=== PATIENT | male | born 1945 ===

== ENCOUNTER 2021-01-06 21:27 | Inpatient (IN) ==
[2021-01-06] MEDS ORDERED: SODIUM CHLORIDE 0.9% 500 ML IV SCH (22:00)
--- NOTE | 2021-01-06 22:11 | Emergency Department Note ---
Impression & Plan Atrial fibrillation with rapid ventricular response, Palpitation, SOB (shortness of breath), Right upper lobe pneumonia ED Provider Note NAME: LALITA JAIMES AGE: 75 SEX: M : 1945 ARRIVES VIA: Ambulance INFORMANT: Patient, ED PROVIDER(S): Jose Guzmán DO CHIEF COMPLAINT: Palpitations HPI: The patient is a 75-year-old male who presented to the emergency department from [facility] for an evaluation of palpitations. The patient does have a history of pacemaker as well as atrial fibrillation because of sick sinus syndr ome. He was discharged from [facility] and sent to [facility]. The patient is originally from the [facility]. [facility] [place] for sepsis and hypoxic respiratory failure. The patient does have a history of atrial fibrillation. Reportedly he does take medications for atrial fibrillation including anticoagulation. The patient admittedly states he does not know why he is here. En route he received normal saline bolus of 300 mL and Cardizem 15 mg. He was found to be in rapid atrial fibrillation. The patient denies any fever. He does complain of cough. He has a history of Pseudomonas in his sputum. He was receiving cefepime as well as ciprofloxacin. The patient denies having any fever. He denies have any lower extremity pain. He denies having any chest pain. The patient states that he has been compliant with his outpatient medication regimen. He states that he was sent to the emergency department at the request of his daughter. ROS: See above HPI for pertinent positives & negatives. A total of 10 systems reviewed and were otherwise negative. PAST MEDICAL HISTORY: See Below PAST SURGICAL HISTORY: See Below FAMILY HISTORY: See Below SOCIAL HISTORY: See Below HOME MEDICATIONS: See Below ALLERGIES: See Below VITALS: See Below PHYSICAL EXAMINATION: GENERAL: The patient is awake and alert. The patient is somewhat cachectic appearing. EYES: The conjunctivae are clear. The pupils are round and reactive. EARS, NOSE, MOUTH AND THROAT: The nose is without any evidence of any deformity. NECK: The neck is nontender and supple. RESPIRATORY: Diminished breath sounds are noted throughout. Scattered wheezing was noted in all lung garcía. There is no tachypnea or conversational dyspnea. CARDIOVASCULAR: Tachycardic and irregular heart sounds were noted to auscultation. There is no definite murmur. GASTROINTESTINAL: The abdomen is soft. Abdomen is nontender. MUSCULOSKELETAL/EXTREMITIES: There is no evidence of gross deformity full range of motion is noted in the hips and shoulders. SKIN: Chronic venous stasis changes were noted. Skin was warm. NEUROLOGIC: Patient is awake alert and oriented x3. MEDICAL DECISION MAKING: The patient is a 75-year-old male who presented to the emergency department for an evaluation of palpitations. The patient has a history of atrial fibrillation. The patient was found to be in atrial fibrillation with RVR. He was treated with Cardizem prior to arrival. He was given IV fluids and IV Cardizem in the emergency department. I discussed the patient's laboratory and radiographic studies with him. Ultimately the patient was felt to be a good candidate for inpatient management. He does of a history of atrial fibrillation but it appears he is normally well rate controlled. The patient also has a history of Pseudomonas infection. He does not have a cough or fever but he does have signs of infiltrate on the chest x-ray. He will have blood cultures drawn but I will defer antibiotics to the admitting team. Triage Nursing notes reviewed. Prior medical records reviewed Vital Signs: reviewed and remarkable for tachycardia. Differential diagnosis: Premature contractions, electrolyte abnormality, cardiac dysrhythmia, thyroid dysfunction, pulmonary embolism, infection, gastrointestinal, as well as other pathologies. ER treatment provided: See below Diagnostics interpreted by me: ECG: EKG was obtained in the emergency department. My interpretation is atrial fibrillation at [address] depressions were noted. There was no PVCs noted. No previous tracing was available. Cardiac Monitoring: An order was placed for continuous cardiac monitoring. The monitor shows a rate of 130 bpm with atrial fibrillation rhythm. Laboratory studies: As stated above and show below. Imaging studies: See below Consultation(s): I discussed this case with Dr. Scott who is on-call for the [facility] hospitalist group. They will evaluate the patient in the emergency department for further management and disposition. ED COURSE: Procedures: none PDMP:reviewed and no issues Critical Care: I have personally spent greater than 40 minutes of critical care time in the direct management of this patient. This includes bedside care, interpretation o f diagnostic studies, and testing, discussion with consultants, patient, and family members, and other required patient management activities. This 40 minutes is in excess of all separately billable procedures. Past Med/Surg History Medical History (Updated 01/07/21 @ 00:32 by Yoseph Kearney MD) Acute and chronic respiratory failure Atrial fibrillation COPD exacerbation Positive sputum culture for Pseudomonas Tobacco abuse Surgical History History of permanent cardiac pacemaker placement Social History Smoking Status: Former smoker Feels Safe at Home: Yes Allergies Allergies Allergy/AdvReac Type Severity Reaction Status Date / Time No Known Allergies Allergy Unverified 01/06/21 23:21 Home Meds Home Medications Medication Instructions Recorded Confirmed acetaminophen [Tylenol] 650 mg PO Q6 PRN 01/06/21 01/06/21 ascorbic acid (vitamin C) [Vitamin 500 mg PO DAILY 01/06/21 01/06/21 C] atorvastatin 20 mg PO HS 01/06/21 01/06/21 bisacodyl [Dulcolax (bisacodyl)] 10 mg [place] UD PRN 01/06/21 01/06/21 escitalopram oxalate 10 mg PO DAILY 01/06/21 01/06/21 ferrous sulfate 325 mg PO Q OTHER DAY 01/06/21 01/06/21 [id number] 1 inh INHALATION DAILY 01/06/21 01/06/21 [Trelegy Ellipta] folic acid 1 mg PO DAILY 01/06/21 01/06/21 furosemide [Lasix] 40 mg PO DAILY 01/06/21 01/06/21 magnesium hydroxide [Milk of 30 ml PO UD PRN 01/06/21 01/06/21 Magnesia] melatonin 3 mg PO HS 01/06/21 01/06/21 multivitamin 1 tab PO DAILY 01/06/21 01/06/21 sodium chloride [Saline Nasal Mist] 1 spray INTRANASAL .Q2HRS PRN 01/06/21 01/06/21 warfarin 5 mg PO .THFRSU 01/06/21 01/06/21 warfarin [Coumadin] 2.5 mg PO MOTUWESA 01/06/21 01/06/21 Results & Data (ED) Vital Signs Vital Signs - 24 hr 01/06/21 15:51 01/06/21 21:37 01/06/21 21:39 Temperature 37.2 C Temperature Source Oral Pulse Rate 128 H 113 H Pulse Rate from SpO2 Sensor 130 H Pulse Rhythm Irregular Pulse Strength Weak Respiratory Rate 27 H Respiratory Effort / Characteristics Non-Labored Respiratory Depth Normal Blood Pressure 125/66 115/72 115/72 Blood Pressure Mean 85 86 86 Pulse Oximetry 99 98 Oxygen Delivery Method Nasal Cannula Oxygen Flow Rate 2 Sepsis New/Unexplained Change in Mental Status No Sepsis Action Taken by Nursing No Action Required 01/06/21 21:47 01/06/21 22:00 01/06/21 22:30 Temperature Temperature Source Pulse Rate 120 H 129 H Pulse Rate from SpO2 Sensor 120 H Pulse Rhythm Pulse Strength Respiratory Rate 26 H 22 Respiratory Effort / Characteristics Respiratory Depth Blood Pressure 128/70 124/86 Blood Pressure Mean 89 98 Pulse Oximetry 98 98 Oxygen Delivery Method Nasal Cannula Oxygen Flow Rate 2 Sepsis New/Unexplained Change in Mental Status Sepsis Action Taken by Nursing 01/06/21 22:31 01/06/21 23:00 01/06/21 23:57 Temperature Temperature Source Pulse Rate 136 H 130 H 132 H Pulse Rate from SpO2 Sensor 134 H 131 H 119 H Pulse Rhythm Pulse Strength Respiratory Rate 23 24 21 Respiratory Effort / Characteristics Respiratory Depth Blood Pressure 140/90 124/73 Blood Pressure Mean 106 90 Pulse Oximetry 99 98 99 Oxygen Delivery Method Nasal Cannula Nasal Cannula Oxygen Flow Rate Sepsis New/Unexplained Change in Mental Status Sepsis Action Taken by Nursing 01/06/21 23:58 01/07/21 00:00 01/07/21 00:01 Temperature Temperature Source Pulse Rate 124 H 117 H 121 H Pulse Rate from SpO2 Sensor 121 H 121 H 119 H Pulse Rhythm Pulse Strength Respiratory Rate 23 21 20 Respiratory Effort / Characteristics Respiratory Depth Blood Pressure 121/80 Blood Pressure Mean 93 Pulse Oximetry 99 99 99 Oxygen Delivery Method Nasal Cannula Nasal Cannula Oxygen Flow Rate 2 2 Sepsis New/Unexplained Change in Mental Status Sepsis Action Taken by Nursing 01/07/21 00:30 01/07/21 00:31 Temperature Temperature Source Pulse Rate 129 H 119 H Pulse Rate from SpO2 Sensor 134 H 121 H Pulse Rhythm Pulse Strength Respiratory Rate 17 19 Respiratory Effort / Characteristics Respiratory Depth Blood Pressure 121/82 Blood Pressure Mean 95 Pulse Oximetry 99 99 Oxygen Delivery Method Nasal Cannula Nasal Cannula Oxygen Flow Rate 2 2 Sepsis New/Unexplained Change in Mental Status Sepsis Action Taken by Group Home Medications Current Medication List: was personally reviewed by me Laboratory Data Attestation: I reviewed the patient's lab results. Result diagrams: 01/06/21 22:20 01/06/21 22:20 Lab Results 01/06/21 01/06/21 01/06/21 Range/Units 22:20 22:20 22:20 WBC 7.66 (4.8-10.8) K/uL RBC 3.46 L (4.7-6.1) M/uL Hgb 10.3 L (14.0-18.0) g/dL Hct 32.3 L (42-52) % MCV 93.4 (80-100) fL MCH 29.8 (25-34) pg MCHC 31.9 L (32-36) g/dL RDW Std Deviation 66.9 H (36.4-46.3) fL RDW Coeff of Bert 19.5 H (11.5-14.5) % Plt Count 165 (130-400) K/uL MPV 9.3 (7.4-10.4) fL Immature Gran % (Auto) 1.0 % Neut % (Auto) 72.9 % Lymph % (Auto) 12.8 % Elliott % (Auto) 11.0 % Eos % (Auto) 2.0 % Baso % (Auto) 0.3 % Neut # (Auto) 5.59 (1.4-6.5) K/uL Lymph # (Auto) 0.98 L (1.2-3.4) K/uL Elliott # (Auto) 0.84 H (0.11-0.59) K/uL Eos # (Auto) 0.15 (0-0.5) K/uL Baso # (Auto) 0.02 (0-0.2) K/uL Immature Gran # (Auto) 0.08 H (0.00-0.02) K/uL PT 12.9 H (9.0-12.0) Seconds INR 1.3 H (0.9-1.1) APTT 30.2 (21.0-31.0) Seconds PTT Ratio 1.1 Sodium 140 (136-145) mmol/L Potassium 3.7 (3.5-5.1) mmol/L Chloride 105 (98-107) mmol/L Carbon Dioxide 29 (21-32) mmol/L Anion Gap 6.0 (3-11) BUN 32 H (7-18) mg/dl Creatinine 0.80 (0.6-1.4) mg/dl Est Cr Clr Drug Dosing 77.3 ml/min Est GFR ( Amer) 99.9 ml/min Est GFR (Non-Af Amer) 86.2 ml/min BUN/Creatinine Ratio 39.7 H (10-20) Glucose 97 (70-99) mg/dl Calcium 8.2 L (8.5-10.1) mg/dl Magnesium 2.0 (1.8-2.4) mg/dl Total Bilirubin 0.7 (0.2-1) mg/dl AST 23 (15-37) U/L ALT 40 (12-78) U/L Alkaline Phosphatase 165 H (45-117) U/L Troponin I 0.044 (0-0.045) ng/ml Total Protein 5.7 L (6.4-8.2) gm/dl Albumin 2.2 L (3.4-5.0) gm/dl Globulin 3.5 (2.5-4.0) gm/dl Albumin/Globulin Ratio 0.6 L (0.9-2) TSH 2.410 (0.300-4.500) uIu/ml COVID-19 Eval Order 01/06/21 Range/Units 23:51 WBC (4.8-10.8) K/uL RBC (4.7-6.1) M/uL Hgb (14.0-18.0) g/dL Hct (42-52) % MCV (80-100) fL MCH (25-34) pg MCHC (32-36) g/dL RDW Std Deviation (36.4-46.3) fL RDW Coeff of Bert (11.5-14.5) % Plt Count (130-400) K/uL MPV (7.4-10.4) fL Immature Gran % (Auto) % Neut % (Auto) % Lymph % (Auto) % Elliott % (Auto) % Eos % (Auto) % Baso % (Auto) % Neut # (Auto) (1.4-6.5) K/uL Lymph # (Auto) (1.2-3.4) K/uL Elliott # (Auto) (0.11-0.59) K/uL Eos # (Auto) (0-0.5) K/uL Baso # (Auto) (0-0.2) K/uL Immature Gran # (Auto) (0.00-0.02) K/uL PT (9.0-12.0) Seconds INR (0.9-1.1) APTT (21.0-31.0) Seconds PTT Ratio Sodium (136-145) mmol/L Potassium (3.5-5.1) mmol/L Chloride (98-107) mmol/L Carbon Dioxide (21-32) mmol/L Anion Gap (3-11) BUN (7-18) mg/dl Creatinine (0.6-1.4) mg/dl Est Cr Clr Drug Dosing ml/min Est GFR ( Amer) ml/min Est GFR (Non-Af Amer) ml/min BUN/Creatinine Ratio (10-20) Glucose (70-99) mg/dl Calcium (8.5-10.1) mg/dl Magnesium (1.8-2.4) mg/dl Total Bilirubin (0.2-1) mg/dl AST (15-37) U/L ALT (12-78) U/L Alkaline Phosphatase (45-117) U/L Troponin I (0-0.045) ng/ml Total Protein (6.4-8.2) gm/dl Albumin (3.4-5.0) gm/dl Globulin (2.5-4.0) gm/dl Albumin/Globulin Ratio (0.9-2) TSH (0.300-4.500) uIu/ml COVID-19 Eval Order Covid19 at [facility] Administered Medications Metoprolol Tartrate (Metoprolol Tartrate 1 Mg/Ml Vial) 5 mg IV Q5M PRN PRN Reason: HR>120 Stop: 02/06/21 00:17 Last Admin: 01/07/21 00:31 Dose: 5 mg Documented by: [id number] Discontinued Medications Diltiazem HCl (Diltiazem Hcl 5 Mg/Ml 5 Ml Vial) 15 mg IV NOW STA Stop: 01/06/21 23:16 Last Admin: 01/06/21 23:24 Dose: 15 mg Documented by: [id number] Cosigned by: [id number] Sodium Chloride (Nss) 500 mls @ 999 mls/hr IV .Q31M AMELIE Stop: 01/06/21 22:30 Last Infusion: 01/07/21 00:00 Dose: 0 mls/hr Documented by: [id number] Admin: 01/06/21 23:28 Dose: 999 mls/hr Documented by: [id number] Imaging Data Attestation: I personally reviewed and interpreted this imaging study as follows: My Impression: 1 view chest x-ray was obtained in the emergency department. My interpretation is right upper lobe infiltrate. Radiologist's Impression: Chest X-Ray 01/06/21 21:47 XR chest 1V portable HISTORY: weakness COMPARISON: None. FINDINGS: Severe emphysema. There is a right upper lobe masslike irregular opacity which measures 7 cm. Left-sided dual-chamber pacemaker. There are poststernotomy changes. The heart is normal in size. An aortic valve prosthesis is noted. No evidence for pulmonary edema. IMPRESSION: 1. A right upper lobe irregular 7 mm masslike opacity. In the absence of prior studies or known malignancy, follow-up chest CT is recommended for further evaluation. 2. Severe emphysema. ACT 112: Negative or not required by law. Electronically signed by: Rickie Vieyra M.D. 01/06/2021 11:41 PM Discharge Plan Visit Data Chief Complaint: Arrhythmia/Palpitations Stated Complaint: BREATHING DIFFICULTY/A-FIB ED Provider: Jose Guzmán Discharge Problem: Atrial fibrillation with rapid ventricular response, Palpitation, SOB (shortness of breath), Right upper lobe pneumonia Patient Disposition: Being Evaluated by Hospitalist Condition: Good Forms Stand Alone Forms: My [facility] Prescriptions Prescriptions: No Action multivitamin Tablet 1 tab PO DAILY RF: 0 furosemide [Lasix] 40 mg Tablet 40 mg PO DAILY RF: 0 acetaminophen [Tylenol] 325 mg Tablet 650 mg PO Q6 PRN (Reason: Fever Or Pain) RF: 0 atorvastatin 20 mg Tablet 20 mg PO HS RF: 0 warfarin [Coumadin] 2.5 mg Tablet 2.5 mg PO MOTUWESA RF: 0 melatonin 3 mg Tablet 3 mg PO HS RF: 0 magnesium hydroxide [Milk of Magnesia] 400 mg/5 mL Suspension 30 ml PO UD PRN (Reason: Constipation) RF: 0 ascorbic acid (vitamin C) [Vitamin C] 500 mg Tablet 500 mg PO DAILY RF: 0 bisacodyl [Dulcolax (bisacodyl)] 10 mg Suppository 10 mg [place] UD PRN (Reason: Constipation) RF: 0 ferrous sulfate 325 mg (65 mg iron) Tablet 325 mg PO Q OTHER DAY RF: 0 warfarin 5 mg Tablet 5 mg PO .THFRSU RF: 0 folic acid 1 mg Tablet 1 mg PO DAILY RF: 0 escitalopram oxalate 10 mg tablet 10 mg PO DAILY RF: 0 sodium chloride [Saline Nasal Mist] 0.65 % Aerosol,[place] 1 spray INTRANASAL .Q2HRS PRN (Reason: dry nares) RF: 0 Trelegy Ellipta 100-62.5-25 mcg Blister With Device 1 inh INHALATION DAILY RF: 0 Referrals Referrals: [facility] [Primary Care Provider] - Discharge Problem: Right upper lobe pneumonia Qualifiers: Pneumonia type: due to unspecified organism Qualified Code(s): J18.9 - Pneumonia, unspecified organism
[2021-01-06 22:59] LABS: Basophils # (auto) 0.02 K/uL (0-0.2); Basophils % (auto) 0.3 %; Eosinophils # (auto) 0.15 K/uL (0-0.5); Hematocrit (blood only) 32.3 % (42-52); Hemoglobin 10.3 g/dL (14.0-18.0); Immature Granulocytes # (auto) 0.08 K/uL (0.00-0.02); Lymphocytes # (auto) 0.98 K/uL (1.2-3.4); Lymphocytes % (auto) 12.8 %; Mean Corpuscular Hemoglobin 29.8 pg (25-34); Mean Corpuscular Hgb Conc 31.9 g/dL (32-36); Mean Corpuscular Volume 93.4 fL (80-100); Mean Platelet Volume 9.3 fL (7.4-10.4); Monocytes # (auto) 0.84 K/uL (0.11-0.59); Neutrophils # (auto) 5.59 K/uL (1.4-6.5); Neutrophils % (auto) 72.9 %; Platelet Count 165 K/uL (130-400); RDW Coefficient of Variation 19.5 % (11.5-14.5); RDW Standard Deviation 66.9 fL (36.4-46.3); Red Blood Count 3.46 M/uL (4.7-6.1); White Blood Count 7.66 K/uL (4.8-10.8)
[2021-01-06 23:15] LABS: INR 1.3 (0.9-1.1); Partial Thromboplastin Ratio 1.1; Partial Thromboplastin Time 30.2 Seconds (21.0-31.0); Prothrombin Time 12.9 Seconds (9.0-12.0)
[2021-01-06] MEDS ORDERED: dilTIAZem HCl 5 MG/ML 5 ML VIAL IV STA (23:15)
[2021-01-06 23:19] LABS: Albumin Level 2.2 gm/dl (3.4-5.0); BUN Creatinine Ratio 39.7 (10-20); Calcium 8.2 mg/dl (8.5-10.1); Creatinine Clr Calc Pharmacy 77.3 ml/min; Est GFR (African American) 99.9 ml/min; Est GFR (Non-African American) 86.2 ml/min; Potassium 3.7 mmol/L (3.5-5.1)
[2021-01-06 23:27] LABS: Albumin Globulin Ratio 0.6 (0.9-2); Bilirubin,Total 0.7 mg/dl (0.2-1); Globulin 3.5 gm/dl (2.5-4.0); Thyroid Stimulating Hormone 2.41 uIu/ml (0.300-4.500); Total Protein 5.7 gm/dl (6.4-8.2); Troponin I 0.044 ng/ml (0-0.045)
--- NOTE | 2021-01-06 23:42 | XRay Report ---
XR chest 1V portable HISTORY: weakness COMPARISON: None. FINDINGS: Severe emphysema. There is a right upper lobe masslike irregular opacity which measures 7 c m. Left-sided dual-chamber pacemaker. There are poststernotomy changes. The heart is normal in size. An aortic valve prosthesis is noted. No evidence for pulmonary edema. IMPRESSION: 1. A right upper lobe irregular 7 mm masslike opacity. In the absence of prior studies or known malig jane, follow-up chest CT is recommended for further evaluation. 2. Severe emphysema. ACT 112: Negative or not required by law. Electronically signed by: Rickie Vieyra M.D. 01/06/2021 11:41 PM
[2021-01-07] MEDS: METOPROLOL TARTRATE 1 MG/ML VIAL IV PRN ×2 (00:31→11:09)
--- NOTE | 2021-01-07 00:33 | History & Physical Report ---
Date of Service January 07, 2021 Assessment & Plan (1) Atrial fibrillation with rapid ventricular response: Binh Prater is a 75y/o male with past medical history significant for atrial fibrillation, COPD, h/o aortic valve replacement (2008), chronic anticoagulation with warfarin, suspicious right upper lobe mass, and h/o pseudomonal respiratory culture; who presented to the ER from [facility] for evaluation of palpitations. 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: -CXR demonstrating 7cm irregular right upper lobe mass -patient was at least 1ppd smoker for >60 years -per records received from [facility] had scheduled CT scan prior to discharge from [facility] -uncertain if this was completed -will await records from [place] for further evaluation of potential oncologic process COPD: -extensive smoking history (at least 1ppd for >60 years) -continue Trelegy ellipta Diet: Regular CODE STATUS: Full code DVT ppx: continue warfarin (2) Mass of upper lobe of right lung: (3) COPD (chronic obstructive pulmonary disease): History of Present Illness Primary Care Provider: [facility] Binh Prater is a 75y/o male with past medical history significant for atrial fibrillation, COPD, h/o aortic valve replacement (2008), chronic anticoagulation with warfarin, suspicious right upper lobe mass, and h/o pseudomonal respiratory culture; who presented to the ER from [facility] for evaluation of palpitations. Of note patient has recently been discharged from [facility] prior to being sent to [facility] for concerns of sepsis and hypoxic respiratory failure. Prior to presentation to the ED was found to be tachycardic and received 15mg IV Cardizem, and then upon presentation in ED additionally received a 300mL bolus of IV fluids, and additional dose of Cardizem. Continued to be tachycardic with improved rate control following administration of 5mg IV metoprolol. Currently, denies chest pain, palpitations, shortness of breath, nausea, vomiting, abdominal pain, or changes in bowel movement. Allergies Allergy/AdvReac Type Severity Reaction Status Date / Time No Known Allergies Allergy Unverified 01/06/21 23:21 Home Medications Medication Instructions Recorded Confirmed Type acetaminophen [Tylenol] 650 mg PO Q6 PRN 01/06/21 01/06/21 History ascorbic acid (vitamin C) [Vitamin 500 mg PO DAILY 01/06/21 01/06/21 History C] atorvastatin 20 mg PO HS 01/06/21 01/06/21 History bisacodyl [Dulcolax (bisacodyl)] 10 mg NM UD PRN 01/06/21 01/06/21 History escitalopram oxalate 10 mg PO DAILY 01/06/21 01/06/21 History ferrous sulfate 325 mg PO Q OTHER DAY 01/06/21 01/06/21 History mlbyorsybnd-siocvufry-ynopsitu 1 inh INHALATION DAILY 01/06/21 01/06/21 History [Trelegy Ellipta] folic acid 1 mg PO DAILY 01/06/21 01/06/21 History furosemide [Lasix] 40 mg PO DAILY 01/06/21 01/06/21 History magnesium hydroxide [Milk of 30 ml PO UD PRN 01/06/21 01/06/21 History Magnesia] melatonin 3 mg PO HS 01/06/21 01/06/21 History multivitamin 1 tab PO DAILY 01/06/21 01/06/21 History sodium chloride [Saline Nasal Mist] 1 spray INTRANASAL .Q2HRS PRN 01/06/21 01/06/21 History warfarin 5 mg PO .THFRSU 01/06/21 01/06/21 History warfarin [Coumadin] 2.5 mg PO MOTUWESA 01/06/21 01/06/21 History Past Med/Surg History Medical History (Updated 01/07/21 @ 00:48 by Yoseph Kearney MD) Acute and chronic respiratory failure Atrial fibrillation COPD exacerbation Positive sputum culture for Pseudomonas Tobacco abuse Surgical History (Updated 01/07/21 @ 00:48 by Yoseph Kearney MD) History of aortic valve replacement with bioprosthetic valve History of permanent cardiac pacemaker placement Social History Smoking Status: Former smoker Hx Alcohol Use: No Hx Substance Use: No Beliefs That Will Affect Care: None Current Living Situation: Personal Care Facility Feels Safe at Home: Yes Review of Systems Review of Systems: All systems reviewed & are unremarkable except as noted in HPI & below Physical Exam Constitutional: WD/WN, vitals as above Eyes: PERRL, conjunctivae normal, anicteric sclerae Respiratory: normal respiratory effort, + cough, able to speak in complete sentences and + prolonged expiratory phase; no respiratory distress, no labored breathing and no retractions Auscultation: no crackles, no rhonchi and no wheezes Cardiovascular: Rate/Rhythm: + irregularly irregular Heart Sounds: + murmur (Systolic murmur over SOFÍA border) Vessels: normal peripheral pulses Extremities: no calf tenderness Gastrointestinal (Abdomen): Inspection/Auscultation: normal bowel sounds; abdomen not distended Percussion/Palpation: abdomen soft; abdomen nontender and no guarding Musculoskeletal: no cyanosis or clubbing, extremities motor strength 5/5 Neurologic: PERRL, EOMI, accommodation nl, no face palsy, no dysarthria CN's II-XI intact bilaterally and moves all extremities Psychiatric: Orientation: alert and oriented x 3 Results & Data Results & Data ([facility]) Vital Signs (Past 12 Hours) Vital Signs Temp Pulse Resp BP Pulse Ox 01/06/21 23:57 132 H 21 124/73 99 01/06/21 23:00 130 H 24 140/90 98 01/06/21 22:31 136 H 23 99 01/06/21 22:30 129 H 22 124/86 01/06/21 22:00 120 H 26 H 128/70 98 01/06/21 21:47 98 01/06/21 21:39 37.2 C 113 H 115/72 98 01/06/21 21:37 128 H 27 H 115/72 99 01/06/21 15:51 125/66 Laboratory Results 01/06/21 01/06/21 01/06/21 Range/Units 23:51 23:51 22:20 WBC (4.8-10.8) K/uL RBC (4.7-6.1) M/uL Hgb (14.0-18.0) g/dL Hct (42-52) % MCV (80-100) fL MCH (25-34) pg MCHC (32-36) g/dL RDW Std Deviation (36.4-46.3) fL RDW Coeff of Bert (11.5-14.5) % Plt Count (130-400) K/uL MPV (7.4-10.4) fL Immature Gran % (Auto) % Neut % (Auto) % Lymph % (Auto) % [place] % (Auto) % Eos % (Auto) % Baso % (Auto) % Neut # (Auto) (1.4-6.5) K/uL Lymph # (Auto) (1.2-3.4) K/uL [place] # (Auto) (0.11-0.59) K/uL Eos # (Auto) (0-0.5) K/uL Baso # (Auto) (0-0.2) K/uL Immature Gran # (Auto) (0.00-0.02) K/uL PT (9.0-12.0) Seconds INR (0.9-1.1) APTT (21.0-31.0) Seconds PTT Ratio Sodium 140 (136-145) mmol/L Potassium 3.7 (3.5-5.1) mmol/L Chloride 105 (98-107) mmol/L Carbon Dioxide 29 (21-32) mmol/L Anion Gap 6.0 (3-11) BUN 32 H (7-18) mg/dl Creatinine 0.80 (0.6-1.4) mg/dl Est Cr Clr Drug Dosing 77.3 ml/min Est GFR ( Amer) 99.9 ml/min Est GFR (Non-Af Amer) 86.2 ml/min BUN/Creatinine Ratio 39.7 H (10-20) Glucose 97 (70-99) mg/dl Calcium 8.2 L (8.5-10.1) mg/dl Magnesium 2.0 (1.8-2.4) mg/dl Total Bilirubin 0.7 (0.2-1) mg/dl AST 23 (15-37) U/L ALT 40 (12-78) U/L Alkaline Phosphatase 165 H (45-117) U/L Troponin I 0.044 (0-0.045) ng/ml Total Protein 5.7 L (6.4-8.2) gm/dl Albumin 2.2 L (3.4-5.0) gm/dl Globulin 3.5 (2.5-4.0) gm/dl Albumin/Globulin Ratio 0.6 L (0.9-2) TSH 2.410 (0.300-4.500) uIu/ml COVID-19 Eval Order Covid19 at [facility] SARS-CoV-2 (PCR) Pending 01/06/21 01/06/21 Range/Units 22:20 22:20 WBC 7.66 (4.8-10.8) K/uL RBC 3.46 L (4.7-6.1) M/uL Hgb 10.3 L (14.0-18.0) g/dL Hct 32.3 L (42-52) % MCV 93.4 (80-100) fL MCH 29.8 (25-34) pg MCHC 31.9 L (32-36) g/dL RDW Std Deviation 66.9 H (36.4-46.3) fL RDW Coeff of Bert 19.5 H (11.5-14.5) % Plt Count 165 (130-400) K/uL MPV 9.3 (7.4-10.4) fL Immature Gran % (Auto) 1.0 % Neut % (Auto) 72.9 % Lymph % (Auto) 12.8 % [place] % (Auto) 11.0 % Eos % (Auto) 2.0 % Baso % (Auto) 0.3 % Neut # (Auto) 5.59 (1.4-6.5) K/uL Lymph # (Auto) 0.98 L (1.2-3.4) K/uL [place] # (Auto) 0.84 H (0.11-0.59) K/uL Eos # (Auto) 0.15 (0-0.5) K/uL Baso # (Auto) 0.02 (0-0.2) K/uL Immature Gran # (Auto) 0.08 H (0.00-0.02) K/uL PT 12.9 H (9.0-12.0) Seconds INR 1.3 H (0.9-1.1) APTT 30.2 (21.0-31.0) Seconds PTT Ratio 1.1 Sodium (136-145) mmol/L Potassium (3.5-5.1) mmol/L Chloride (98-107) mmol/L Carbon Dioxide (21-32) mmol/L Anion Gap (3-11) BUN (7-18) mg/dl Creatinine (0.6-1.4) mg/dl Est Cr Clr Drug Dosing ml/min Est GFR ( Amer) ml/min Est GFR (Non-Af Amer) ml/min BUN/Creatinine Ratio (10-20) Glucose (70-99) mg/dl Calcium (8.5-10.1) mg/dl Magnesium (1.8-2.4) mg/dl Total Bilirubin (0.2-1) mg/dl AST (15-37) U/L ALT (12-78) U/L Alkaline Phosphatase (45-117) U/L Troponin I (0-0.045) ng/ml Total Protein (6.4-8.2) gm/dl Albumin (3.4-5.0) gm/dl Globulin (2.5-4.0) gm/dl Albumin/Globulin Ratio (0.9-2) TSH (0.300-4.500) uIu/ml COVID-19 Eval Order SARS-CoV-2 (PCR) Medications Administered Current Inpatient Medications Metoprolol Tartrate (Metoprolol Tartrate 1 Mg/Ml Vial) 5 mg IV Q5M PRN PRN Reason: HR>120 Stop: 02/06/21 00:17 Supervising Physician Co-Signing Physician Notes Patient seen and examined, chart reviewed, case discussed [facility] [place] Dr. Kearney and I agree with his assessment and plan as documented above. Briefly, patient is a 75yo male presenting with AF with RVR - HR to 130. Patient does not routinely receive care in OR system - we have limited records available. Apparently he is also being worked up for a spiculated RUL mass. HR with minimal response to Cardizem IVP Metoprolol given with good effect Patient is already anticoagulated on Warfarin - subtherapeutic INR of 1.3 Troponin = 0.044 Physical exam AF at 98bpm Lungs CTA Abd soft, NT/ND -Obtain outpatient records -Metoprolol IV PRN. Consider initiating daily BB/Metoprolol - will wait for outpatient records to see if he is on a rate controlling agent already -Resume Coumadin - check INR in AM Resident Activity Tracking Resident Involvement: Resident Care Provided Care Provided: Adult [facility] Medicine
[2021-01-07] MEDS ORDERED: ALUMINUM/MAGNESIUM SUSP 30 ML UDC PO PRN (02:31)
[2021-01-07] MEDS ORDERED: bisacodyL 10 MG SUPP PR PRN (02:31)
[2021-01-07] MEDS ORDERED: ACETAMINOPHEN 325 MG TAB PO PRN (02:31)
[2021-01-07] MEDS ORDERED: POLYETHYLENE (MIRALAX) 17 GM PACK PO PRN (02:31)
[2021-01-07] MEDS ORDERED: ONDANSETRON INJ 2 MG/ML 2 ML VIAL IV PRN (02:31)
[2021-01-07] MEDS ORDERED: MAGNESIUM HYDROXIDE SUSP 30 ML UDC PO PRN (02:31)
--- NOTE | 2021-01-07 03:07 | Billing Data ---
Date of Service January 07, 2021 Coding Level of Care Code 89279 Initial Inpt Care Lvl 2
[2021-01-07] MEDS ORDERED: WARFARIN SOD 2.5 MG TAB PO ONE (03:45)
[2021-01-07 03:53] LABS: Appearance Urine Clear (Clear); Bacteria Urine Automated Negative (Negative); Bilirubin Urine Negative (Negative); Blood Urine Negative (Negative); Color Urine Yellow; Glucose Urine UA Negative (Negative); Ketones Urine Negative (Negative); Leukocyte Esterase Urine Negative (Negative); Nitrite Urine Negative (Negative); Protein Urine 1+ (Negative); RBC Urine Automated 0-4 /hpf (0-4); Specific Gravity Urine 1.023 (1.000-1.030); Urobilinogen Urine Negative (Negative)
[2021-01-07 04:04] LABS: Cast Urine Automated >30 /lpf (0-5); Mucus Urine Present (None Prsent)
[2021-01-07 06:26] LABS: INR 1.3 (0.9-1.1); Prothrombin Time 13.3 Seconds (9.0-12.0)
[2021-01-07] MEDS ORDERED: ALBUT/IPRATROP 3MG/0.5MG NEB 3 ML VIAL NEB PRN (07:54)
--- NOTE | 2021-01-07 07:59 | Hospitalist Progress Note ---
Date of Service January 07, 2021 Assessment & Plan (1) Atrial fibrillation with rapid ventricular response: Binh Parter is a 75y/o male with past medical history significant for atrial fibrillation, COPD, h/o aortic valve replacement (2008), chronic anticoagulation with warfarin, suspicious right upper lobe mass, and h/o pseudomonal respiratory culture; who presented to the ER from [facility] for evaluation of palpitations. #Atrial fibrillation with RVR: tachycardic prior to and upon presentation to hospital s/p two rounds of Cardizem without correction of tachycardia. EKG demonstrating atrial fibrillation with RVR Improved control following initiation of metoprolol. INR subtherapeutic on presentation will bridge with heparin and trend daily INR. -troponin 0.044 repeat 0.043, no chest pain, suspect chronically elevated -continue warfarin - INR 1.3 -Heparin bridge - could d/c in am. -Follow INR -Cardiology consulted -Suboptimal A. fib rate control -Recommend beta-didi titration to achieve a ventricular rate of 80-100 -Metoprolol 25 mg every 8 hours hold for systolic less than 90 mmHg -History of aortic valve replacement with bioprosthetic valve -History of permanent cardiac pacemaker -Need to obtain records regarding details #Hypotension Need records, patient on 40 mg p.o. furosemide as an outpatient. -Trial 20 mg p.o. furosemide tomorrow #History of aortic valve replacement with bioprosthetic valve As above #History of permanent cardiac pacemaker placement As above #Suspicious lung mass of right upper lobe: CXR demonstrating 7cm irregular right upper lobe mass,patient was at least 1ppd smoker for >60 years. Per records received from [facility] had scheduled CT scan prior to [facility] from [facility] -Reviewed records from [facility]. Patient has outpatient follow-up scheduled for further evaluate this suspicious lung mass. Will defer further evaluation to the outpatient setting -[facility] pulmonology recommending follow-up as an outpatient #COPD: -extensive smoking history (at least 1ppd for >60 years) -continue Trelegy ellipta #CAD -Continue atorvastatin 20 mg p.o. at bedtime #Depression -Continue escitalopram FENa: Heart healthy Code Status: Full code DVT PPX: Heparin bridge pending therapeutic warfarin PT/OT: Consulted Dispo: MedSurg telemetry John Scott MD PGY 2, FCM This chart was completed utilizing dragon dictation voice recognition software. Grammatical errors, random word insertions, pronoun errors, and in complete sentences are an occasional consequence of the system. Any questions or concerns about the content, text, or information contained within the body of this dictation should be addressed directly to the physician for clarification. (2) Mass of upper lobe of right lung: (3) COPD (chronic obstructive pulmonary disease): Admission and Anticipated Discharge Date Admission Date: January 07, 2021 Supervising Physician Co-Signing Physician Notes Resident Physician Supervision Note: I independently interviewed and examined the patient and verified the schmitt history and physical, reviewed labs and image studies and agree with resident Dr. John Scott findings and care plan. Subjective Patient lying in bed this morning in no acute distress. Patient related a history similar to that described in the H&P. Patient endorses as he notes when he experiences atrial fibrillation as he can tell based upon his symptoms. Per review of records patient is out patient work-up scheduled for his lung mass. Patient would often repeat his questions, or go on tangents during the interview question his reliability as a historian. Physical Exam Physical Exam: General: No acute distress HEENT: Normocephalic atraumatic Neck: Normal to visual inspection Cardiac: Irregularly irregular rhythm, tachycardic, I did not appreciate any significant murmurs rubs or gallops. No significant pedal edema Respiratory: Decreased breath sounds bilaterally, faint expiratory wheeze, did not appreciate any rales or rhonchi, metrical chest expansion GI: Soft, nontender, nondistended, bowel sounds present MSK: Moves all extremities Neuro: AAO x2 Psych: Calm and cooperative with the interview, his reliability as a historian is questionable. Results & Data Results & Data ([facility]) Vital Signs (Past 12 Hours) Vital Signs Temp Pulse Pulse Resp BP BP Pulse Ox 01/07/21 07:15 117 H 01/07/21 06:51 36.6 C 106 H 18 105/69 100 01/07/21 02:49 36.6 C 85 16 115/71 98 01/07/21 01:31 98 H 20 99 01/07/21 01:30 99 H 18 116/70 99 01/07/21 01:01 107 H 24 99 01/07/21 01:00 101 H 24 120/77 99 01/07/21 00:31 119 H 19 99 01/07/21 00:30 129 H 17 121/82 99 01/07/21 00:01 121 H 20 99 01/07/21 00:00 117 H 21 121/80 99 01/06/21 23:58 124 H 23 99 01/06/21 23:57 132 H 21 124/73 99 01/06/21 23:00 130 H 24 140/90 98 01/06/21 22:31 136 H 23 99 01/06/21 22:30 129 H 22 124/86 01/06/21 22:00 120 H 26 H 128/70 98 01/06/21 21:47 98 01/06/21 21:39 37.2 C 113 H 115/72 98 01/06/21 21:37 128 H 27 H 115/72 99 Laboratory Results 01/07/21 01/07/21 01/07/21 Range/Units 05:59 05:59 03:43 WBC (4.8-10.8) K/uL RBC (4.7-6.1) M/uL Hgb (14.0-18.0) g/dL Hct (42-52) % MCV (80-100) fL MCH (25-34) pg MCHC (32-36) g/dL RDW Std Deviation (36.4-46.3) fL RDW Coeff of Betr (11.5-14.5) % Plt Count (130-400) K/uL MPV (7.4-10.4) fL Immature Gran % (Auto) % Neut % (Auto) % Lymph % (Auto) % [place] % (Auto) % Eos % (Auto) % Baso % (Auto) % Neut # (Auto) (1.4-6.5) K/uL Lymph # (Auto) (1.2-3.4) K/uL [place] # (Auto) (0.11-0.59) K/uL Eos # (Auto) (0-0.5) K/uL Baso # (Auto) (0-0.2) K/uL Immature Gran # (Auto) (0.00-0.02) K/uL PT 13.3 H (9.0-12.0) Seconds INR 1.3 H (0.9-1.1) APTT (21.0-31.0) Seconds PTT Ratio Sodium (136-145) mmol/L Potassium (3.5-5.1) mmol/L Chloride (98-107) mmol/L Carbon Dioxide (21-32) mmol/L Anion Gap (3-11) BUN (7-18) mg/dl Creatinine (0.6-1.4) mg/dl Est Cr Clr Drug Dosing ml/min Est GFR ( Amer) ml/min Est GFR (Non-Af Amer) ml/min BUN/Creatinine Ratio (10-20) Glucose (70-99) mg/dl Calcium (8.5-10.1) mg/dl Magnesium (1.8-2.4) mg/dl Total Bilirubin (0.2-1) mg/dl AST (15-37) U/L ALT (12-78) U/L Alkaline Phosphatase (45-117) U/L Troponin I 0.043 (0-0.045) ng/ml Total Protein (6.4-8.2) gm/dl Albumin (3.4-5.0) gm/dl Globulin (2.5-4.0) gm/dl Albumin/Globulin Ratio (0.9-2) TSH (0.300-4.500) uIu/ml Urine Color Yellow Urine Appearance Clear (Clear) Urine pH 5.0 (4.5-7.5) Ur Specific [place] 1.023 (1.000-1.030) Urine Protein 1+ H (Negative) Urine Glucose (UA) Negative (Negative) Urine Ketones Negative (Negative) Urine Blood Negative (Negative) Urine Nitrite Negative (Negative) Urine Bilirubin Negative (Negative) Urine Urobilinogen Negative (Negative) Ur Leukocyte Esterase Negative (Negative) Urine WBC (Auto) 1-5 (0-5) /hpf Urine RBC (Auto) 0-4 (0-4) /hpf U Hyaline Cast (Auto) >30 H (0-5) /lpf U Epithel Cells (Auto) 5-10 H (0-5) /lpf Urine Bacteria (Auto) Negative (Negative) Urine Mucus Present A (None Prsent) COVID-19 Eval Order SARS-CoV-2 (PCR) (Negative) 01/06/21 01/06/21 01/06/21 Range/Units 23:51 23:51 22:20 WBC (4.8-10.8) K/uL RBC (4.7-6.1) M/uL Hgb (14.0-18.0) g/dL Hct (42-52) % MCV (80-100) fL MCH (25-34) pg MCHC (32-36) g/dL RDW Std Deviation (36.4-46.3) fL RDW Coeff of Bert (11.5-14.5) % Plt Count (130-400) K/uL MPV (7.4-10.4) fL Immature Gran % (Auto) % Neut % (Auto) % Lymph % (Auto) % [place] % (Auto) % Eos % (Auto) % Baso % (Auto) % Neut # (Auto) (1.4-6.5) K/uL Lymph # (Auto) (1.2-3.4) K/uL [place] # (Auto) (0.11-0.59) K/uL Eos # (Auto) (0-0.5) K/uL Baso # (Auto) (0-0.2) K/uL Immature Gran # (Auto) (0.00-0.02) K/uL PT (9.0-12.0) Seconds INR (0.9-1.1) APTT (21.0-31.0) Seconds PTT Ratio Sodium 140 (136-145) mmol/L Potassium 3.7 (3.5-5.1) mmol/L Chloride 105 (98-107) mmol/L Carbon Dioxide 29 (21-32) mmol/L Anion Gap 6.0 (3-11) BUN 32 H (7-18) mg/dl Creatinine 0.80 (0.6-1.4) mg/dl Est Cr Clr Drug Dosing 77.3 ml/min Est GFR ( Amer) 99.9 ml/min Est GFR (Non-Af Amer) 86.2 ml/min BUN/Creatinine Ratio 39.7 H (10-20) Glucose 97 (70-99) mg/dl Calcium 8.2 L (8.5-10.1) mg/dl Magnesium 2.0 (1.8-2.4) mg/dl Total Bilirubin 0.7 (0.2-1) mg/dl AST 23 (15-37) U/L ALT 40 (12-78) U/L Alkaline Phosphatase 165 H (45-117) U/L Troponin I 0.044 (0-0.045) ng/ml Total Protein 5.7 L (6.4-8.2) gm/dl Albumin 2.2 L (3.4-5.0) gm/dl Globulin 3.5 (2.5-4.0) gm/dl Albumin/Globulin Ratio 0.6 L (0.9-2) TSH 2.410 (0.300-4.500) uIu/ml Urine Color Urine Appearance (Clear) Urine pH (4.5-7.5) Ur Specific [place] (1.000-1.030) Urine Protein (Negative) Urine Glucose (UA) (Negative) Urine Ketones (Negative) Urine Blood (Negative) Urine Nitrite (Negative) Urine Bilirubin (Negative) Urine Urobilinogen (Negative) Ur Leukocyte Esterase (Negative) Urine WBC (Auto) (0-5) /hpf Urine RBC (Auto) (0-4) /hpf U Hyaline Cast (Auto) (0-5) /lpf U Epithel Cells (Auto) (0-5) /lpf Urine Bacteria (Auto) (Negative) Urine Mucus (None Prsent) COVID-19 Eval Order Covid19 at [facility] SARS-CoV-2 (PCR) NEGATIVE (Negative) 01/06/21 01/06/21 Range/Units 22:20 22:20 WBC 7.66 (4.8-10.8) K/uL RBC 3.46 L (4.7-6.1) M/uL Hgb 10.3 L (14.0-18.0) g/dL Hct 32.3 L (42-52) % MCV 93.4 (80-100) fL MCH 29.8 (25-34) pg MCHC 31.9 L (32-36) g/dL RDW Std Deviation 66.9 H (36.4-46.3) fL RDW Coeff of Bert 19.5 H (11.5-14.5) % Plt Count 165 (130-400) K/uL MPV 9.3 (7.4-10.4) fL Immature Gran % (Auto) 1.0 % Neut % (Auto) 72.9 % Lymph % (Auto) 12.8 % [place] % (Auto) 11.0 % Eos % (Auto) 2.0 % Baso % (Auto) 0.3 % Neut # (Auto) 5.59 (1.4-6.5) K/uL Lymph # (Auto) 0.98 L (1.2-3.4) K/uL [place] # (Auto) 0.84 H (0.11-0.59) K/uL Eos # (Auto) 0.15 (0-0.5) K/uL Baso # (Auto) 0.02 (0-0.2) K/uL Immature Gran # (Auto) 0.08 H (0.00-0.02) K/uL PT 12.9 H (9.0-12.0) Seconds INR 1.3 H (0.9-1.1) APTT 30.2 (21.0-31.0) Seconds PTT Ratio 1.1 Sodium (136-145) mmol/L Potassium (3.5-5.1) mmol/L Chloride (98-107) mmol/L Carbon Dioxide (21-32) mmol/L Anion Gap (3-11) BUN (7-18) mg/dl Creatinine (0.6-1.4) mg/dl Est Cr Clr Drug Dosing ml/min Est GFR ( Amer) ml/min Est GFR (Non-Af Amer) ml/min BUN/Creatinine Ratio (10-20) Glucose (70-99) mg/dl Calcium (8.5-10.1) mg/dl Magnesium (1.8-2.4) mg/dl Total Bilirubin (0.2-1) mg/dl AST (15-37) U/L ALT (12-78) U/L Alkaline Phosphatase (45-117) U/L Troponin I (0-0.045) ng/ml Total Protein (6.4-8.2) gm/dl Albumin (3.4-5.0) gm/dl Globulin (2.5-4.0) gm/dl Albumin/Globulin Ratio (0.9-2) TSH (0.300-4.500) uIu/ml Urine Color Urine Appearance (Clear) Urine pH (4.5-7.5) Ur Specific [place] (1.000-1.030) Urine Protein (Negative) Urine Glucose (UA) (Negative) Urine Ketones (Negative) Urine Blood (Negative) Urine Nitrite (Negative) Urine Bilirubin (Negative) Urine Urobilinogen (Negative) Ur Leukocyte Esterase (Negative) Urine WBC (Auto) (0-5) /hpf Urine RBC (Auto) (0-4) /hpf U Hyaline Cast (Auto) (0-5) /lpf U Epithel Cells (Auto) (0-5) /lpf Urine Bacteria (Auto) (Negative) Urine Mucus (None Prsent) COVID-19 Eval Order SARS-CoV-2 (PCR) (Negative) Medications Administered Current Inpatient Medications Acetaminophen (Acetaminophen 325 Mg Tab) 650 mg PO Q6 PRN PRN Reason: Fever Or Pain Stop: 02/06/21 02:30 Al Hydrox/Mg Hydrox/Simethicone (Aluminum/Magnesium Susp 30 Ml Udc) 30 ml PO Q6H PRN PRN Reason: Dyspepsia Stop: 02/06/21 02:30 Ascorbic Acid (Ascorbic Acid 500 Mg Tab) 500 mg PO DAILY AMELIE Stop: 02/06/21 08:59 Atorvastatin Calcium (Atorvastatin 20 Mg Tab) 20 mg PO HS AMELIE Stop: 02/06/21 20:59 Bisacodyl (Bisacodyl 10 Mg Supp) 10 mg FL DAILY PRN PRN Reason: Constipation Stop: 02/06/21 02:30 Escitalopram Oxalate (Escitalopram Oxalate 10 Mg Tab) 10 mg PO DAILY AMELIE Stop: 02/06/21 08:59 Folic Acid (Folic Acid 1 Mg Tab) 1 mg PO DAILY AMELIE Stop: 02/06/21 08:59 Furosemide (Furosemide 40 Mg Tab) 40 mg PO DAILY AMELIE Stop: 02/06/21 08:59 Magnesium Hydroxide (Magnesium Hydroxide Susp 30 Ml Udc) 30 ml PO Q6H PRN PRN Reason: Constipation Stop: 02/06/21 02:30 Melatonin (Melatonin 3 Mg Tab) 3 mg PO HS AMELIE Stop: 02/06/21 20:59 Metoprolol Tartrate (Metoprolol Tartrate 1 Mg/Ml Vial) 5 mg IV Q5M PRN PRN Reason: HR>120 Stop: 02/06/21 00:17 Last Admin: 01/07/21 00:31 Dose: 5 mg Documented by: Ondansetron HCl (Ondansetron Inj 2 Mg/Ml 2 Ml Vial) 4 mg IV Q6H PRN PRN Reason: Nausea Stop: 02/06/21 02:30 Polyethylene Glycol (Polyethylene (Miralax) 17 Gm Pack) 17 gm PO DAILY PRN PRN Reason: Constipation Stop: 02/06/21 02:30 Warfarin Sodium (Warfarin Sod 2.5 Mg Tab) 2.5 mg PO [email or web address] [facility] Stop: 02/07/21 15:59 Warfarin Sodium (Warfarin Sod 5 Mg Tab) 5 mg PO [email or web address] Stop: 02/06/21 15:59 Resident Activity Tracking Resident Involvement: Resident Care Provided Care Provided: Adult Hospital Medicine
--- NOTE | 2021-01-07 08:31 | Electrocardiogram Report ---
Test Reason : Blood Pressure : / mmHG Vent. Rate : 125 BPM Atrial Rate : 131 BPM P-R Int : 000 ms QRS Dur : 088 ms QT Int : 340 ms P-R-T Axes : 000 042 114 degrees QTc Int : 490 ms Atrial fibrillation with rapid ventricular response Minor Nonspecific ST abnormality Anterolateral leads Abnormal ECG No previous ECGs available Confirmed by Kehinde Bonilla ([id number]) on 01/07/2021 8:31:36 AM Referred By: [facility] [place] Confirmed By:Kehinde Bonilla
[2021-01-07] MEDS: ESCITALOPRAM OXALATE 10 MG TAB PO SCH (08:41)
[2021-01-07] MEDS: FOLIC ACID 1 MG TAB PO SCH (08:41)
[2021-01-07] MEDS: ASCORBIC ACID 500 MG TAB PO SCH (08:41)
[2021-01-07] MEDS ORDERED: FUROSEMIDE 40 MG TAB PO SCH (09:00)
[2021-01-07] MEDS ORDERED: NON-FORMULARY MEDICATION (Fluticasone-Umeclidin-Vilanter [Trelegy Ellipta] 100-62.5-25 mcg INH SCH (09:00)
[2021-01-07] MEDS: HEPARIN SODIUM/DEXTROSE 25,000 UNITS/500 ML BAG IV SCH (09:33)
[2021-01-07] MEDS: Heparin IV Adult Wt-Based Standard *NO* Bolus Protocol IV SCH ×2 (09:37→11:03)
[2021-01-07] MEDS: UMECLIDINIUM/VILANTEROL 62.5/25MCG 7 PUFFS/INHALER INH SCH (10:31)
[2021-01-07] MEDS: FLUTICASONE FUROATE 100MCG 14 PUFFS/INHALER INH SCH (10:31)
[2021-01-07] MEDS ORDERED: METOPROLOL TARTRATE 1 MG/ML VIAL IV STA (12:15)
--- NOTE | 2021-01-07 12:45 | Cardiology Consultation ---
Date of Consultation January 07, 2021 Assessment & Plan (1) Atrial fibrillation with rapid ventricular response: 75-year-old man with atrial fibrillation presents with suboptimally controlled ventricular response but little in the way of symptoms. By history he has permanent atrial fibrillation (although this should be confirmed when his outside records are obtained) and he states that he was previously on metoprolol. This may have been stopped during his acute stay, perhaps due to hypotension. Recommend restarting metoprolol tartrate 25 mg every 8 hours (hold for systolic blood pressure less than 90 mmHg) titrated to achieve ventricular rate 80-100 bpm. Would avoid diltiazem, since this has a disproportionate vasodepressor effect and his blood pressure is borderline presently. Agree with heparinization until his INR is closer to therapeutic range for thromboembolic prophylaxis (23). (2) COPD (chronic obstructive pulmonary disease): . (3) History of aortic valve replacement with bioprosthetic valve: Patient notes that his credit authorizer has been checking valve status and it remains favorable. On auscultation, valve function seems appropriate. He appears euvolemic to mildly hypovolemic, reasonable to continue his daily furosemide but monitor weight and creatinine and consider holding dose if he becomes orthostatic, hypotensive, or azotemic. (4) History of permanent cardiac pacemaker placement: Pacemaker details are unknown, he has not required pacing because of his currently tachycardic rhythm. Fortunately, if his pacemaker is functioning properly bradycardia will not be a concern as his beta-didi is titrated upward. Will follow along as beta-didi is titrated. History of Present Illness Reason for Consultation: Atrial fibrillation with rapid ventricular response Requesting Physician: Darleen Klein MD Attending Physician: Darleen Klein MD History of Present Illness 75-year-old man with history of bioprosthetic aortic valve 2008, permanent atrial fibrillation (metoprolol/warfarin), dual-chamber pacemaker, and COPD (undergoing work-up for right upper lobe mass currently) who was recently hosp italized at [facility] for respiratory failure/sepsis, discharged to [facility] about 4 days ago, was sent to the ER by his daughter (nurse) because he was noted to have an elevated heart rate which turned out to be atrial fibrillation with rapid response. He actually has no significant somatic complaints. He does note minor subjective palpitations from time to time experienced as a rapid heart rate. He denies any chest pain. He has chronic dyspnea on exertion but no orthopnea, PND, or leg edema. At the time of my exam, he was comfortable and lying flat. Allergies Allergy/AdvReac Type Severity Reaction Status Date / Time No Known Allergies Allergy Unverified 01/06/21 23:21 Home Medications Medication Instructions Recorded Confirmed Type acetaminophen [Tylenol] 650 mg PO Q6 PRN 01/06/21 01/06/21 History ascorbic acid (vitamin C) [Vitamin 500 mg PO DAILY 01/06/21 01/06/21 History C] atorvastatin 20 mg PO HS 01/06/21 01/06/21 History bisacodyl [Dulcolax (bisacodyl)] 10 mg ME UD PRN 01/06/21 01/06/21 History escitalopram oxalate 10 mg PO DAILY 01/06/21 01/06/21 History ferrous sulfate 325 mg PO Q OTHER DAY 01/06/21 01/06/21 History tcnkoveauwu-wyeqcibfr-jxnpzaek 1 inh INHALATION DAILY 01/06/21 01/06/21 History [Trelegy Ellipta] folic acid 1 mg PO DAILY 01/06/21 01/06/21 History furosemide [Lasix] 40 mg PO DAILY 01/06/21 01/06/21 History magnesium hydroxide [Milk of 30 ml PO UD PRN 01/06/21 01/06/21 History Magnesia] melatonin 3 mg PO HS 01/06/21 01/06/21 History multivitamin 1 tab PO DAILY 01/06/21 01/06/21 History sodium chloride [Saline Nasal Mist] 1 spray INTRANASAL .Q2HRS PRN 01/06/21 01/06/21 History warfarin 5 mg PO .THFRSU 01/06/21 01/06/21 History warfarin [Coumadin] 2.5 mg PO MOTUWESA 01/06/21 01/06/21 History Patient History Medical History (Updated 01/07/21 @ 12:31 by Kehinde Bonilla MD) Acute and chronic respiratory failure COPD exacerbation Permanent atrial fibrillation Positive sputum culture for Pseudomonas Tobacco abuse Surgical History (Updated 01/07/21 @ 12:31 by Kehinde Bonilla MD) History of aortic valve replacement with bioprosthetic valve (2008) History of permanent cardiac pacemaker placement Social History Smoking Status: Former smoker Hx Alcohol Use: No Hx Substance Use: No Beliefs That Will Affect Care: None Current Living Situation: Personal Care Facility Feels Safe at Home: Yes Assistive Devices: None Physical Exam Physical Exam: Thin, elderly white male in no distress. BP low normal. Pulse 110 bpm range and irregular. Skin: no ecchymoses or generalized lesions. HEENT: unremarkable. Neck: Jugular venous pulse at the clavicle, no obvious carotid bruits. Lungs: Markedly decreased breath sounds, faint expiratory wheezing. No accessory muscle use. Cardiac: Irregular tachycardic rhythm without obvious murmur or gallop. Abdomen: benign. Extremities: no edema, pulses intact. Neurologic: normal affect and conversation, nonfocal. Results & Data ([facility]) Laboratory Results Hemoglobin 10.3 with normal white count and platelet count. Normal electrolytes, BUN 32, creatinine 0.8. Magnesium 2.0. Troponin negative x2. Diagnostic Findings Chest x-ray showed significant COPD and the presence of a dual-chamber pacemaker. No acute process. ECG showed atrial fibrillation with rapid ventricular response 125 bpm, minor nonspecific ST depression in the anterolateral leads. No prior ECG for comparison. PG Care Time/CCT Total # of Minutes Spent Total Time Spent with Patient: Total time spent is greater than 50% in coordination of care (as documented) at patient's floor/unit and/or counseling patient: Coding Level of Care Code 07966 Initial Inpt Care Lvl 3 Diagnoses Atrial fibrillation with rapid ventricular response I48.91 COPD (chronic obstructive pulmonary disease) J44.9 History of aortic valve replacement with bioprosthetic valve Z95.3 History of permanent cardiac pacemaker placement Z95.0
[2021-01-07 15:56] LABS: Partial Thromboplastin Ratio 4.1
[2021-01-07] MEDS ORDERED: WARFARIN SOD 5 MG TAB PO SCH (16:00)
[2021-01-07] MEDS: POLYETHYLENE (MIRALAX) 17 GM PACK PO SCH (16:40)
[2021-01-07] MEDS: ATORVASTATIN 20 MG TAB PO SCH (20:19)
[2021-01-07] MEDS: MELATONIN 3 MG TAB PO SCH (20:19)
[2021-01-07 23:26] LABS: Partial Thromboplastin Ratio 3.8
[2021-01-07 23:43] LABS: Partial Thromboplastin Time 100.4 Seconds (21.0-31.0)
[2021-01-08] MEDS: METOPROLOL TARTRATE 1 MG/ML VIAL IV PRN (00:45)
[2021-01-08 07:28] LABS: Basophils # (auto) 0.03 K/uL (0-0.2); Basophils % (auto) 0.4 %; Eosinophils # (auto) 0.18 K/uL (0-0.5); Eosinophils % (auto) 2.5 %; Hematocrit (blood only) 33.9 % (42-52); Hemoglobin 10.7 g/dL (14.0-18.0); Immature Granulocytes # (auto) 0.06 K/uL (0.00-0.02); Immature Granulocytes % (auto) 0.8 %; Lymphocytes # (auto) 1.81 K/uL (1.2-3.4); Lymphocytes % (auto) 25.1 %; Mean Corpuscular Hemoglobin 29.8 pg (25-34); Mean Corpuscular Hgb Conc 31.6 g/dL (32-36); Mean Corpuscular Volume 94.4 fL (80-100); Mean Platelet Volume 9.3 fL (7.4-10.4); Monocytes # (auto) 0.88 K/uL (0.11-0.59); Monocytes % (auto) 12.2 %; Neutrophils # (auto) 4.24 K/uL (1.4-6.5); Platelet Count 172 K/uL (130-400); RDW Coefficient of Variation 19.2 % (11.5-14.5); RDW Standard Deviation 66.3 fL (36.4-46.3); Red Blood Count 3.59 M/uL (4.7-6.1)
--- NOTE | 2021-01-08 07:34 | Hospitalist Progress Note ---
Date of Service January 08, 2021 Assessment & Plan (1) Atrial fibrillation with rapid ventricular response: Binh Prater is a 75y/o male with past medical history significant for atrial fibrillation, COPD, h/o aortic valve replacement (2008), chronic anticoagulation with warfarin, suspicious right upper lobe mass, and h/o pseudomonal respiratory culture; who presented to the ER from [facility] for evaluation of palpitations. #Atrial fibrillation with RVR: tachycardic prior to and upon presentation to hospital s/p two rounds of Cardizem without correction of tachycardia. EKG demonstrating atrial fibrillation with RVR Improved control following initiation of metoprolol. INR subtherapeutic on presentation will bridge with heparin and trend daily INR. -troponin 0.044 repeat 0.043, no chest pain, suspect chronically elevated -continue warfarin - INR 1.3 -Heparin bridge - could d/c in am. -Follow INR -Cardiology consulted -Suboptimal A. fib rate control -Recommend beta-didi titration to achieve a ventricular rate of 80-100 -Metoprolol 50 mg every 8 hours hold for systolic less than 90 mmHg -History of aortic valve replacement with bioprosthetic valve -History of permanent cardiac pacemaker -Need to obtain records regarding details #Hypotension Need records, patient on 40 mg p.o. furosemide as an outpatient. -Trial 20 mg p.o. 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 Per records received from [facility] had scheduled CT scan prior to discharge from [facility] -Reviewed records from [facility]. Patient has outpatient follow-up scheduled for further evaluate this suspicious lung mass. Will defer further evaluation to the outpatient setting -[facility] pulmonology recommending follow-up as an outpatient #COPD: -extensive smoking history (at least 1ppd for >60 years) -continue Trelegy ellipta #CAD -Continue atorvastatin 20 mg p.o. at bedtime #Depression -Continue escitalopram FENa: Heart healthy Code Status: Full code DVT PPX: Heparin bridge pending therapeutic warfarin PT/OT: Consulted Dispo: [facility] telemetry John Scott MD PGY 2, FCM This chart was completed utilizing [employer] voice recognition software. Grammatical errors, random word insertions, pronoun errors, and in complete sentences are an occasional consequence of the system. Any questions or concerns about the content, text, or information contained within the body of this dictation should be addressed directly to the physician for clarification. Admission and Anticipated Discharge Date Admission Date: January 07, 2021 Supervising Physician Co-Signing Physician Notes I personally examined the patient and verified all schmitt points of history and exam, discussed case, and agree with decision making with Dr Scott. Feeling okay. Heart rates improving. Vitals noted, in general he is awake and alert pleasant no distress. HEENT normocephalic atraumatic mucous membranes moist. Heart rate around 110 at the time I see him. No focal neuro deficits. Breathing unlabored afib/RVR - increase metoprolol further. rate control improving. otherwise as above Subjective Patient lying in bed this afternoon in no acute distress. Patient reports tolerating his diet, voiding, stooling, sleeping well. Patient reports no acute events overnight, reports he no longer experiencing any chest pain or sensations in his chest. All questions were answered no acute concerns Physical Exam Physical Exam: General: No acute distress HEENT: Normocephalic atraumatic Neck: Normal to visual inspection Cardiac: Irregularly irregular rhythm, tachycardic, I did not appreciate any significant murmurs rubs or gallops. No significant pedal edema Respiratory: Decreased breath sounds bilaterally, faint expiratory wheeze, did not appreciate any rales or rhonchi, metrical chest expansion GI: Soft, nontender, nondistended, bowel sounds present MSK: Moves all extremities Neuro: AAO x2 Psych: Calm and cooperative with the interview, his reliability as a historian is questionable. Results & Data Results & Data ([facility]) Vital Signs (Past 12 Hours) Vital Signs Temp Pulse Pulse Resp BP Pulse Ox 01/08/21 02:44 112 H 01/08/21 02:41 36.9 C 112 H 18 124/75 97 01/07/21 22:01 37.1 C 106 H 18 106/57 L 98 Laboratory Results 01/08/21 01/08/21 01/08/21 Range/Units 07:13 07:13 07:13 WBC 7.20 (4.8-10.8) K/uL RBC 3.59 L (4.7-6.1) M/uL Hgb 10.7 L (14.0-18.0) g/dL Hct 33.9 L (42-52) % MCV 94.4 (80-100) fL MCH 29.8 (25-34) pg MCHC 31.6 L (32-36) g/dL RDW Std Deviation 66.3 H (36.4-46.3) fL RDW Coeff of Bert 19.2 H (11.5-14.5) % Plt Count 172 (130-400) K/uL MPV 9.3 (7.4-10.4) fL Immature Gran % (Auto) 0.8 % Neut % (Auto) 59.0 % Lymph % (Auto) 25.1 % Boyd % (Auto) 12.2 % Eos % (Auto) 2.5 % Baso % (Auto) 0.4 % Neut # (Auto) 4.24 (1.4-6.5) K/uL Lymph # (Auto) 1.81 (1.2-3.4) K/uL Boyd # (Auto) 0.88 H (0.11-0.59) K/uL Eos # (Auto) 0.18 (0-0.5) K/uL Baso # (Auto) 0.03 (0-0.2) K/uL Immature Gran # (Auto) 0.06 H (0.00-0.02) K/uL PT Pending INR Pending APTT Pending (21.0-31.0) Seconds PTT Ratio Pending Sodium Pending Potassium Pending Chloride Pending Carbon Dioxide Pending Anion Gap Pending BUN Pending Creatinine Pending Est Cr Clr Drug Dosing Pending Est GFR ( Amer) Pending Est GFR (Non-Af Amer) Pending BUN/Creatinine Ratio Pending Glucose Pending Calcium Pending Troponin I (0-0.045) ng/ml 01/07/21 01/07/21 01/07/21 Range/Units 22:58 15:01 15:01 WBC (4.8-10.8) K/uL RBC (4.7-6.1) M/uL Hgb (14.0-18.0) g/dL Hct (42-52) % MCV (80-100) fL MCH (25-34) pg MCHC (32-36) g/dL RDW Std Deviation (36.4-46.3) fL RDW Coeff of Bert (11.5-14.5) % Plt Count (130-400) K/uL MPV (7.4-10.4) fL Immature Gran % (Auto) % Neut % (Auto) % Lymph % (Auto) % Boyd % (Auto) % Eos % (Auto) % Baso % (Auto) % Neut # (Auto) (1.4-6.5) K/uL Lymph # (Auto) (1.2-3.4) K/uL Boyd # (Auto) (0.11-0.59) K/uL Eos # (Auto) (0-0.5) K/uL Baso # (Auto) (0-0.2) K/uL Immature Gran # (Auto) (0.00-0.02) K/uL PT INR APTT 100.4 H* 108.0 H* (21.0-31.0) Seconds PTT Ratio 3.8 4.1 Sodium Potassium Chloride Carbon Dioxide Anion Gap BUN Creatinine Est Cr Clr Drug Dosing Est GFR ( Amer) Est GFR (Non-Af Amer) BUN/Creatinine Ratio Glucose Calcium Troponin I 0.034 (0-0.045) ng/ml Medications Administered Current Inpatient Medications Acetaminophen (Acetaminophen 325 Mg Tab) 650 mg PO Q6 PRN PRN Reason: Fever Or Pain Stop: 02/06/21 02:30 Al Hydrox/Mg Hydrox/Simethicone (Aluminum/Magnesium Susp 30 Ml Udc) 30 ml PO Q6H PRN PRN Reason: Dyspepsia Stop: 02/06/21 02:30 Albuterol (Albut/Ipratrop 3mg/0.5mg Neb 3 Ml Vial) 3 ml NEB Q4R PRN PRN Reason: Wheezing Stop: 02/06/21 10:59 Ascorbic Acid (Ascorbic Acid 500 Mg Tab) 500 mg PO DAILY AMELIE Stop: 02/06/21 08:59 Last Admin: 01/07/21 08:41 Dose: 500 mg Documented by: Atorvastatin Calcium (Atorvastatin 20 Mg Tab) 20 mg PO HS AMELIE Stop: 02/06/21 20:59 Last Admin: 01/07/21 20:19 Dose: 20 mg Documented by: Bisacodyl (Bisacodyl 10 Mg Supp) 10 mg SC DAILY PRN PRN Reason: Constipation Stop: 02/06/21 02:30 Escitalopram Oxalate (Escitalopram Oxalate 10 Mg Tab) 10 mg PO DAILY [facility] Stop: 02/06/21 08:59 Last Admin: 01/07/21 08:41 Dose: 10 mg Documented by: Fluticasone Furoate (Fluticasone Furoate 100mcg 14 Puffs/Inhaler) 1 puffs INH DAILY AMELIE Stop: 02/06/21 10:59 Last Admin: 01/07/21 10:31 Dose: 1 puffs Documented by: Folic Acid (Folic Acid 1 Mg Tab) 1 mg PO DAILY AMELIE Stop: 02/06/21 08:59 Last Admin: 01/07/21 08:41 Dose: 1 mg Documented by: Furosemide (Furosemide 20 Mg Tab) 20 mg PO DAILY [facility] Stop: 02/07/21 08:59 Heparin Sodium/Dextrose (Heparin Sodium/Dextrose) 25,000 units in 500 mls @ 18 mls/hr IV .Q24H AMELIE; Protocol Stop: 02/06/21 09:14 Last Titration: 01/08/21 00:50 Dose: 900 units/hr, 18 mls/hr Documented by: Magnesium Hydroxide (Magnesium Hydroxide Susp 30 Ml Udc) 30 ml PO Q6H PRN PRN Reason: Constipation Stop: 02/06/21 02:30 Last Admin: 01/07/21 15:32 Dose: 30 ml Documented by: Melatonin (Melatonin 3 Mg Tab) 3 mg PO HS [facility] Stop: 02/06/21 20:59 Last Admin: 01/07/21 20:19 Dose: 3 mg Documented by: Metoprolol Tartrate (Metoprolol Tartrate 1 Mg/Ml Vial) 5 mg IV Q5M PRN PRN Reason: HR>120 Stop: 02/06/21 00:17 Last Admin: 01/08/21 00:45 Dose: 5 mg Documented by: Ondansetron HCl (Ondansetron Inj 2 Mg/Ml 2 Ml Vial) 4 mg IV Q6H PRN PRN Reason: Nausea Stop: 02/06/21 02:30 Polyethylene Glycol (Polyethylene (Miralax) 17 Gm Pack) 17 gm PO DAILY PRN PRN Reason: Constipation Stop: 02/06/21 02:30 Polyethylene Glycol (Polyethylene (Miralax) 17 Gm Pack) 17 gm PO DAILY [facility] Stop: 02/06/21 16:59 Last Admin: 01/07/21 16:40 Dose: Not Given Documented by: Umeclidinium/Vilanterol (Umeclidinium/Vilanterol 62.5/25mcg 7 Puffs/Inhaler) 1 puffs INH DAILY [facility] Stop: 02/06/21 10:59 Last Admin: 01/07/21 10:31 Dose: 1 puffs Documented by: Warfarin Sodium (Warfarin Sod 2.5 Mg Tab) 2.5 mg PO [id number]@1600 [facility] Stop: 02/07/21 15:59 Warfarin Sodium (Warfarin Sod 5 Mg Tab) 5 mg PO [id number]@1600 [facility] Stop: 02/06/21 15:59 Last Admin: 01/07/21 15:27 Dose: 5 mg Documented by: Resident Activity Tracking Resident Involvement: Resident Care Provided Care Provided: Adult Hospital Medicine
[2021-01-08 07:48] LABS: Partial Thromboplastin Ratio 3.3
[2021-01-08 07:54] LABS: Partial Thromboplastin Time 85.7 Seconds (21.0-31.0)
[2021-01-08] MEDS ORDERED: METOPROLOL TARTRATE 25 MG TAB PO SCH (08:00)
[2021-01-08] MEDS: UMECLIDINIUM/VILANTEROL 62.5/25MCG 7 PUFFS/INHALER INH SCH (08:02)
[2021-01-08] MEDS: FLUTICASONE FUROATE 100MCG 14 PUFFS/INHALER INH SCH (08:02)
[2021-01-08] MEDS: FOLIC ACID 1 MG TAB PO SCH (08:03)
[2021-01-08] MEDS: ASCORBIC ACID 500 MG TAB PO SCH (08:03)
[2021-01-08] MEDS: FUROSEMIDE 20 MG TAB PO SCH (08:03)
[2021-01-08] MEDS: ESCITALOPRAM OXALATE 10 MG TAB PO SCH (08:03)
[2021-01-08] MEDS: POLYETHYLENE (MIRALAX) 17 GM PACK PO SCH (08:04)
[2021-01-08 08:13] LABS: BUN Creatinine Ratio 38.3 (10-20); Calcium 7.8 mg/dl (8.5-10.1); Creatinine Clr Calc Pharmacy 88.3 ml/min; Est GFR (African American) 107.4 ml/min; Est GFR (Non-African American) 92.7 ml/min; Potassium 4.4 mmol/L (3.5-5.1)
[2021-01-08] MEDS ORDERED: METOPROLOL TARTRATE 50 MG TAB PO SCH (09:30)
[2021-01-08] MEDS ORDERED: METOPROLOL TARTRATE 25 MG TAB PO ONE (09:30)
--- NOTE | 2021-01-08 09:39 | Cardiology Progress Note ---
Date of Service January 08, 2021 Assessment & Plan (1) Atrial fibrillation with rapid ventricular response: 2. COPD 3. History of bioprosthetic AVR 4. Cardiac pacemaker Patient remains in atrial fibrillation with rapid ventricular response despite current dose of metoprolol tartrate. He is overall minimally symptomatic. On exam appears well perfused without signs of heart failure. May have permanent atrial fib (awaiting records to confirm). Plan to increase metoprolol to 50 mg ever 8 hours (hold for systolic BP <90 mmHg). If unable to control HR with metoprolol may need to consider adding digoxin. Continue anticoagulation, INR is therapeutic today. Admission and Anticipated Discharge Date Admission Date: January 07, 2021 Supervising Physician Co-Signing Physician Notes Agree with evaluation by Lelia Velez PA-C. Patient BP generally runs low, as long as asymptomatic and SBP>90 mm Hg would continue titrating meds to achieve HR 80-100 bpm. Subjective Mr. Prater reports feeling well today, has no acute complaints. He is anxious to return to [facility]. Denies any palpitations today. No chest pain. No orthopnea or PND overnight. He has chronic exertional dyspnea. No lower extremity edema. No abnormal bleeding. Tele reviewed--Atrial fibrillation with heart rate 110-120s. Review of Systems Review of Systems: All systems reviewed & are unremarkable except as noted in HPI & below Physical Exam Physical Exam: General: Thin, elderly appearing. Comfortable, no acute distress. HEENT: unremarkable. Neck: No JVD Lungs: Decreased breath sounds throughout, few scattered wheezing Cardiac: Irregularly irregular. Tachycardic. No murmur, gallop or rub Abdomen: benign. Extremities: --No peripheral edema --Diminished pedal pulses bilaterally Neurologic: normal affect and conversation, nonfocal. Results & Data ([facility]) Vital Signs (Past 12 Hours) Vital Signs Temp Pulse Pulse Resp BP Pulse Ox 01/08/21 08:32 126 H 115/65 01/08/21 07:36 36.6 C 115 H 18 108/68 97 01/08/21 02:44 112 H 01/08/21 02:41 36.9 C 112 H 18 124/75 97 01/07/21 22:01 37.1 C 106 H 18 106/57 L 98 Laboratory Results Laboratory Results - last 24 hr 01/07/21 01/07/21 01/07/21 15:01 15:01 22:58 WBC RBC Hgb Hct MCV MCH MCHC RDW Std Deviation RDW Coeff of Bert Plt Count MPV Immature Gran % (Auto) Neut % (Auto) Lymph % (Auto) Mccracken % (Auto) Eos % (Auto) Baso % (Auto) Neut # (Auto) Lymph # (Auto) Mccracken # (Auto) Eos # (Auto) Baso # (Auto) Immature Gran # (Auto) PT INR APTT 108.0 H* 100.4 H* PTT Ratio 4.1 3.8 Sodium Potassium Chloride Carbon Dioxide Anion Gap BUN Creatinine Est Cr Clr Drug Dosing Est GFR ( Amer) Est GFR (Non-Af Amer) BUN/Creatinine Ratio Glucose Calcium Troponin I 0.034 01/08/21 01/08/21 01/08/21 07:13 07:13 07:13 WBC 7.20 RBC 3.59 L Hgb 10.7 L Hct 33.9 L MCV 94.4 MCH 29.8 MCHC 31.6 L RDW Std Deviation 66.3 H RDW Coeff of Bert 19.2 H Plt Count 172 MPV 9.3 Immature Gran % (Auto) 0.8 Neut % (Auto) 59.0 Lymph % (Auto) 25.1 Mccracken % (Auto) 12.2 Eos % (Auto) 2.5 Baso % (Auto) 0.4 Neut # (Auto) 4.24 Lymph # (Auto) 1.81 Mccracken # (Auto) 0.88 H Eos # (Auto) 0.18 Baso # (Auto) 0.03 Immature Gran # (Auto) 0.06 H PT 19.0 H INR 2.0 H APTT 85.7 H* PTT Ratio 3.3 Sodium 138 Potassium 4.4 D Chloride 104 Carbon Dioxide 30 Anion Gap 4.0 BUN 25 H Creatinine 0.67 Est Cr Clr Drug Dosing 88.3 Est GFR ( Amer) 107.4 Est GFR (Non-Af Amer) 92.7 BUN/Creatinine Ratio 38.3 H Glucose 82 Calcium 7.8 L Troponin I PG Care Time/CCT Total # of Minutes Spent Total Time Spent with Patient: Total time spent is greater than 50% in coordination of care (as documented) at patient's floor/unit and/or counseling patient: Coding Level of Care Code 32159 Subseq Hosp Care Lvl 3 Diagnoses Atrial fibrillation with rapid ventricular response I48.91
[2021-01-08] MEDS: HEPARIN SODIUM/DEXTROSE 25,000 UNITS/500 ML BAG IV SCH (11:02)
[2021-01-08] MEDS: METOPROLOL TARTRATE 50 MG TAB PO SCH ×2 (14:15→21:43)
[2021-01-08 15:38] LABS: Partial Thromboplastin Ratio 2.4
[2021-01-08] MEDS: WARFARIN SOD 2.5 MG TAB PO SCH (15:54)
--- NOTE | 2021-01-08 16:28 | Billing Data ---
Date of Service January 08, 2021 Coding Level of Care Code 85760 Subseq Hosp Care Lvl 3
[2021-01-08] MEDS: MELATONIN 3 MG TAB PO SCH (20:00)
[2021-01-08] MEDS: ATORVASTATIN 20 MG TAB PO SCH (20:00)
[2021-01-09] MEDS: METOPROLOL TARTRATE 50 MG TAB PO SCH (05:56)
[2021-01-09 06:56] LABS: Partial Thromboplastin Ratio 2.7
[2021-01-09 07:10] LABS: Partial Thromboplastin Time 71.8 Seconds (21.0-31.0)
[2021-01-09] MEDS: FOLIC ACID 1 MG TAB PO SCH (08:05)
[2021-01-09] MEDS: UMECLIDINIUM/VILANTEROL 62.5/25MCG 7 PUFFS/INHALER INH SCH (08:05)
[2021-01-09] MEDS: ESCITALOPRAM OXALATE 10 MG TAB PO SCH (08:05)
[2021-01-09] MEDS: ASCORBIC ACID 500 MG TAB PO SCH (08:05)
[2021-01-09] MEDS: FUROSEMIDE 20 MG TAB PO SCH (08:05)
[2021-01-09] MEDS: FLUTICASONE FUROATE 100MCG 14 PUFFS/INHALER INH SCH (08:06)
[2021-01-09] MEDS: POLYETHYLENE (MIRALAX) 17 GM PACK PO SCH (08:06)
[2021-01-09 08:35] LABS: INR 2.2 (0.9-1.1); Prothrombin Time 20.8 Seconds (9.0-12.0)
--- NOTE | 2021-01-09 10:04 | Cardiology Progress Note ---
Date of Service January 09, 2021 Assessment & Plan (1) Atrial fibrillation with rapid ventricular response: (2) History of permanent cardiac pacemaker placement: (3) History of aortic valve replacement with bioprosthetic valve: Patient asymptomatic with currently well controlled ventricular response to his presumed permanent atrial fibrillation. Would discharge on metoprolol tartrate 100 mg twice daily, his blood pressure seems to tolerate the higher doses and he has a pacemaker so bradycardia is not a concern. He is therapeutic on warfarin. No dynamic cardiac issues presently, will sign off. Thank you. Admission and Anticipated Discharge Date Admission Date: January 07, 2021 Subjective Patient is doing well, no complaints whatsoever. No subjective palpitations, chest pain, or dyspnea. Telemetry showed atrial fibrillation with ventricular rate around 100 bpm yesterday, 90 bpm since 6 AM this morning. Physical Exam Physical Exam: No distress. BP low normal. Pulse 90 bpm range and irregular. Skin: no ecchymoses or generalized lesions. HEENT: unremarkable. Neck: Jugular venous pulse at the clavicle, no obvious carotid bruits. Lungs: Markedly decreased breath sounds, faint expiratory wheezing. No accessory muscle use. Cardiac: Irregular tachycardic rhythm without obvious murmur or gallop. Abdomen: benign. Extremities: no edema, pulses intact. Neurologic: normal affect and conversation, nonfocal. Results & Data ([facility]) Vital Signs (Past 12 Hours) Vital Signs Temp Pulse Pulse Resp BP BP Pulse Ox 01/09/21 07:55 98.1 F 93 H 16 114/55 L 100 01/09/21 05:54 105 H 112/74 97 01/09/21 03:15 99.1 F 97 H 19 115/77 96 01/08/21 23:00 98.8 F 95 H 18 114/70 95 01/08/21 22:20 94 H Laboratory Results INR 2.2 today. Normal electrolytes, BUN 25, creatinine 0.67. PG Care Time/CCT Total # of Minutes Spent Total Time Spent with Patient: Total time spent is greater than 50% in coordination of care (as documented) at patient's floor/unit and/or counseling patient: Coding Level of Care Code 86925 Subseq Hosp Care Lvl 3 Diagnoses Atrial fibrillation with rapid ventricular response I48.91 History of permanent cardiac pacemaker placement Z95.0 History of aortic valve replacement with bioprosthetic valve Z95.3
--- NOTE | 2021-01-09 10:41 | Discharge Summary ---
Date of Service January 10, 2021 Admission HPI Per Admitting Provider Binh Prater is a 75y/o male with past medical history significant for atrial fibrillation, COPD, h/o aortic valve replacement (2008), chronic anticoagulation with warfarin, suspicious right upper lobe mass, and h/o pseudomonal respiratory culture; who presented to the ER from [facility] for evaluation of palpitations. Of note patient has recently been discharged from [facility] prior to being sent to [facility] for concerns of sepsis and hypoxic respiratory failure. Prior to presentation to the ED was found to be tachycardic and received 15mg IV Cardizem, and then upon presentation in ED additionally r eceived a 300mL bolus of IV fluids, and additional dose of Cardizem. Continued to be tachycardic with improved rate control following administration of 5mg IV metoprolol. Currently, denies chest pain, palpitations, shortness of breath, nausea, vomiting, abdominal pain, or changes in bowel movement. Admission Exam Per Admitting Provider Constitutional: WD/WN, vitals as above Eyes: PERRL, conjunctivae normal, anicteric sclerae Respiratory: normal respiratory effort, + cough, able to speak in complete sentences and + prolonged expiratory phase; no respiratory distress, no labored breathing and no retractions Auscultation: no crackles, no rhonchi and no wheezes Cardiovascular: Rate/Rhythm: + irregularly irregular Heart Sounds: + murmur (Systolic murmur over SOFÍA border) Vessels: normal peripheral pulses Extremities: no calf tenderness Gastrointestinal (Abdomen): Inspection/Auscultation: normal bowel sounds; abdomen not distended Percussion/Palpation: abdomen soft; abdomen nontender and no guarding Musculoskeletal: no cyanosis or clubbing, extremities motor strength 5/5 Neurologic: PERRL, EOMI, accommodation nl, no face palsy, no dysarthria CN's II-XI intact bilaterally and moves all extremities Psychiatric: Orientation: alert and oriented x 3 Principal Diagnosis Atrial fibrillation with RVR Discharge Exam General: No acute distress HEENT: Normocephalic atraumatic Neck: Normal to visual inspection Cardiac: Irregularly irregular rhythm,regular rate , I did not appreciate any significant murmurs rubs or gallops. No significant pedal edema Respiratory: Decreased breath sounds bilaterally, faint expiratory wheeze, did not appreciate any rales or rhonchi, symmetrical chest expansion GI: Soft, nontender, nondistended, bowel sounds present MSK: Moves all extremities Neuro: AAO x2 Psych: Calm and cooperative with the interview, his reliability as a historian is questionable. Discharge Data Allergies Allergy/AdvReac Type Severity Reaction Status Date / Time No Known Allergies Allergy Unverified 01/06/21 23:21 Consultations 01/06/21 23:29 ED Decision to Admit Stat 01/07/21 12:13 Consult Cardiology Routine Hospital Course (1) Atrial fibrillation with rapid ventricular response: Binh Prater is a 75y/o male with past medical history significant for atrial fibrillation, COPD, h/o aortic valve replacement (2008), chronic anticoagulation with warfarin, suspicious right upper lobe mass, and h/o pseudomonal respiratory culture; who presented to the ER from [facility] for evaluation of palpitations. #Atrial fibrillation with RVR: tachycardic prior to and upon presentation to hospital s/p two rounds of Cardizem without correction of tachycardia. EKG demonstrating atrial fibrillation with RVR Improved control following initiation of metoprolol. INR subtherapeutic on presentation will bridge with heparin and trend daily INR. Troponins elevated admission, repeat was as well, cardiology was consulted. Cardiology indicating some optimal A. fib rate control, recommending titration of beta-didi while hospitalized to target ventricular rate 80-100. Ultimately rate control was achieved with 100 mg of metoprolol twice daily. Recommend with outpatient rn perioperative -INR therapeutic on discharge -Metoprolol 100 mg twice daily #Hypotension Need records, patient on 40 mg p.o. furosemide as an outpatient. Patient appears to be persistently hypotensive his dose, decreased to 20 mg in discharge. 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 Per records received from [facility] had scheduled CT scan prior to discharge from [facility] -Reviewed records from [facility]. Patient has outpatient follow-up scheduled for further evaluate this suspicious lung mass. Will defer further evaluation to the outpatient setting #COPD: -extensive smoking history (at least 1ppd for >60 years) -continued Trelegy ellipta #CAD -Continued atorvastatin 20 mg p.o. at bedtime #Depression -Continued escitalopram John Scott MD PGY 2, [facility] This chart was completed utilizing [employer] voice recognition software. Grammatical errors, random word insertions, pronoun errors, and in complete sentences are an occasional consequence of the system. Any questions or concerns about the content, text, or information contained within the body of this dictation should be addressed directly to the physician for clarification. Total Time Total Time Spent Total Time Spent (In Minutes): <30 Discharge Plan Discharge Items Patient Disposition: Transfer [facility] Reason For Visit: AFIB W/ RVR Discharge Diagnosis: Atrial fibrillation with rapid ventricular response complicated by history of COPD, hypotension Condition on Discharge: Good Activity: Resume your previous activity Non-emergency contact: Solutions Developer Call non-emergency contact if: you have any medication questions, your pain is not controlled and your temperature is above 101 Follow-up/Referrals: [facility] [Primary Care Provider] - Diet: Heart Healthy Addtl Attending Provider Instructions: Binh Prater is a 75y/o male with past medical history significant for atrial fibrillation, COPD, h/o aortic valve replacement (2008), chronic anticoagulation with warfarin, suspicious right upper lobe mass, and h/o pseudomonal respiratory culture; who presented to the ER from [facility] for evaluation of palpitations. #Atrial fibrillation with RVR: tachycardic prior to and upon presentation to hospital s/p two rounds of Cardizem without correction of tachycardia. EKG demonstrating atrial fibrillation with RVR Improved control following initiation of metoprolol. INR subtherapeutic on presentation will bridge with heparin and trend daily INR. Troponins elevated admission, repeat was as well, cardiology was consulted. Cardiology indicating some optimal A. fib rate control, recommending titration of beta-diid while hospitalized to target ventricular rate 80-100. Ultimately rate control was achieved with 100 mg of metoprolol twice daily. Recommend with outpatient rn perioperative -INR therapeutic on discharge -Metoprolol 100 mg twice daily #Hypotension Need records, patient on 40 mg p.o. furosemide as an outpatient. Patient appears to be persistently hypotensive his dose, decreased to 20 mg in discharge. 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 Per records received from [facility] had scheduled CT scan prior to discharge from [facility] -Reviewed records from [facility]. Patient has outpatient follow-up scheduled for further evaluate this suspicious lung mass. Will defer further evaluation to the outpatient setting #COPD: -extensive smoking history (at least 1ppd for >60 years) -continued Trelegy ellipta #CAD -Continued atorvastatin 20 mg p.o. at bedtime #Depression -Continued escitalopram John Scott MD PGY 2, [facility] This chart was completed utilizing [employer] voice recognition software. Grammatical errors, random word insertions, pronoun errors, and in complete sentences are an occasional consequence of the system. Any questions or concerns about the content, text, or information contained within the body of this dictation should be addressed directly to the physician for clarification. Pending Studies at Discharge: No Stand-Alone Forms: My [employer] Skilled Items Patient informed of condition?: Yes DNR: No Discharge Level of Care: Skilled Communicable Disease: No Discharge Prognosis: Stable Lines: None Urinary Catheter: No Medications and DC Order Prescriptions: New furosemide 20 mg Tablet 20 mg PO DAILY 30 Days Qty: 30 RF: 0 metoprolol tartrate 100 mg tablet 100 mg PO BID 30 Days Qty: 60 RF: 0 Continued multivitamin Tablet 1 tab PO DAILY RF: 0 acetaminophen [Tylenol] 325 mg Tablet 650 mg PO Q6 PRN (Reason: Fever Or Pain) RF: 0 atorvastatin 20 mg Tablet 20 mg PO HS RF: 0 warfarin 2.5 mg Tablet 2.5 mg PO MOTUWESA RF: 0 melatonin 3 mg Tablet 3 mg PO HS RF: 0 magnesium hydroxide [Milk of Magnesia] 400 mg/5 mL Suspension 30 ml PO UD PRN (Reason: Constipation) RF: 0 ascorbic acid (vitamin C) [Vitamin C] 500 mg Tablet 500 mg PO DAILY RF: 0 bisacodyl [Dulcolax (bisacodyl)] 10 mg Suppository 10 mg AK UD PRN (Reason: Constipation) RF: 0 ferrous sulfate 325 mg (65 mg iron) Tablet 325 mg PO Q OTHER DAY RF: 0 warfarin 5 mg Tablet 5 mg PO .THFRSU RF: 0 folic acid 1 mg Tablet 1 mg PO DAILY RF: 0 escitalopram oxalate 10 mg tablet 10 mg PO DAILY RF: 0 sodium chloride [Saline Nasal Mist] 0.65 % Aerosol,[place] 1 spray INTRANASAL .Q2HRS PRN (Reason: dry nares) RF: 0 Trelegy Ellipta 100-62.5-25 mcg Blister With Device 1 inh INHALATION DAILY RF: 0 Discontinued furosemide [Lasix] 40 mg Tablet 40 mg PO DAILY RF: 0 Discharge Orders: Discharge Order (Routine); Ordered 01/10/21 Ordered By: John Scott Admission Data Admit Date/Time: 01/07/21 01:02 Attending Provider: Horacio Shaw Admit Provider: Yoseph Kearney Primary Care Provider: [facility] Other Providers: Lulu Scott ; Rom Haywood ; Kehinde Bonilla ; Jose Zapata ; Toni Damon ; Maurisio Cain ; Jamar Mckeon Jr ; Trenton Briones ; Lelia Velez ; Celia Stone ; Michael Wyman ; Michael Reinoso ; Jay Alexander ; Ruperto Price ; Jio Lu ; Julio Alcantar ; Tyler Mccloud ; Arya Martinez ; Darleen Klein Other Interventions: Discharge Summary Assessment (RN) Last Done: 01/10/21 11:06 Supervising Physician Co-Signing Physician Notes I personally examined the patient and verified all schmitt points of history and exam, discussed case, and agree with decision making with Dr Scott. Feels fine and able to return to [facility] Vitals noted, in general he is awake and alert pleasant no distress. HEENT nor mocephalic atraumatic mucous membranes moist. Heart rate reasonable. No focal neuro deficits. Breathing unlabored afib/RVR -rate controlled, adequately anticoagulated (follow INR at SNF). Stable for return to [facility] Resident Activity Tracking Resident Involvement: Resident Care Provided Care Provided: Adult Hospital Medicine
[2021-01-09] MEDS: HEPARIN SODIUM/DEXTROSE 25,000 UNITS/500 ML BAG IV SCH (13:16)
[2021-01-09] MEDS ORDERED: METOPROLOL TARTRATE 25 MG TAB PO SCH (14:00)
--- NOTE | 2021-01-09 14:55 | Hospitalist Progress Note ---
Date of Service January 09, 2021 Assessment & Plan (1) Atrial fibrillation with rapid ventricular response: Binh Prater is a 75y/o male with past medical history significant for atrial fibrillation, COPD, h/o aortic valve replacement (2008), chronic anticoagulation with warfarin, suspicious right upper lobe mass, and h/o pseudomonal respiratory culture; who presented to the ER from [facility] for evaluation of palpitations. #Atrial fibrillation with RVR: tachycardic prior to and upon presentation to hospital s/p two rounds of Cardizem without correction of tachycardia. EKG demonstrating atrial fibrillation with RVR Improved control following initiation of metoprolol. INR subtherapeutic on presentation will bridge with heparin and trend daily INR. Troponins elevated admission, repeat was as well, cardiology was consulted. Cardiology indicating suboptimal A. fib rate control, recommending titration of beta-didi while hospitalized to target ventricular rate 80-100. -INR therapeutic -Metoprolol 100 mg twice daily #Hypotension Need records, patient on 40 mg p.o. furosemide as an outpatient. Patient appears to be persistently hypotensive his dose. 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 Per records received from [facility] had scheduled CT scan prior to discharge from [facility] -Reviewed records from [facility]. Patient has outpatient follow-up scheduled for further evaluate this suspicious lung mass. Will defer further evaluation to the outpatient setting #COPD: -extensive smoking history (at least 1ppd for >60 years) -continued Trelegy ellipta #CAD -Continued atorvastatin 20 mg p.o. at bedtime #Depression -Continued escitalopram John Scott MD PGY 2, FCM This chart was completed utilizing [email or web address] voice recognition software. Grammatical errors, random word insertions, pronoun errors, and in complete sentences are an occasional consequence of the system. Any questions or concerns about the content, text, or information contained within the body of this dictation should be addressed directly to the physician for clarification. Admission and Anticipated Discharge Date Admission Date: January 07, 2021 Supervising Physician Co-Signing Physician Notes I personally examined the patient and verified all schmitt points of history and exam, discussed case, and agree with decision making with Dr Scott. Feels good, heart rates better. Just waiting on authorization for [facility] to [facility] Vitals noted, in general he is awake and alert pleasant no distress. HEENT normocephalic atraumatic mucous membranes moist. Heart rate has improved. No focal neuro deficits. Breathing unlabored afib/RVR -rate controlled, adequately anticoagulated (stop heparin). Stable for return to [facility] Subjective Patient lying in bed this morning in no acute distress. Patient reports improvement in his symptomatic atrial fibrillation. Patient notes that he has not had any heart rates in the 130s. Patient had no acute events overnight, tolerating his diet, voiding, stooling, acute questions related to discharge no concerns. Physical Exam Physical Exam: General: No acute distress HEENT: Normocephalic atraumatic Neck: Normal to visual inspection Cardiac: Irregularly irregular rhythm, tachycardic, I did not appreciate any significant murmurs rubs or gallops. No significant pedal edema Respiratory: Decreased breath sounds bilaterally, faint expiratory wheeze, did not appreciate any rales or rhonchi, metrical chest expansion GI: Soft, nontender, nondistended, bowel sounds present MSK: Moves all extremities Neuro: AAO x2 Psych: Calm and cooperative with the interview, his reliability as a historian is questionable. Results & Data Results & Data ([facility]) Vital Signs (Past 12 Hours) Vital Signs Temp Pulse Resp BP BP Pulse Ox 01/09/21 12:00 36.5 C 93 H 18 96/67 L 99 01/09/21 07:55 36.7 C 93 H 16 114/55 L 100 01/09/21 05:54 105 H 112/74 97 01/09/21 03:15 37.3 C 97 H 19 115/77 96 Laboratory Results 01/09/21 01/09/21 01/08/21 Range/Units 05:56 05:55 15:03 PT 20.8 H (9.0-12.0) Seconds INR 2.2 H (0.9-1.1) APTT 71.8 H* 64.0 H* (21.0-31.0) Seconds PTT Ratio 2.7 2.4 Medications Administered Current Inpatient Medications Acetaminophen (Acetaminophen 325 Mg Tab) 650 mg PO Q6 PRN PRN Reason: Fever Or Pain Stop: 02/06/21 02:30 Al Hydrox/Mg Hydrox/Simethicone (Aluminum/Magnesium Susp 30 Ml Udc) 30 ml PO Q6H PRN PRN Reason: Dyspepsia Stop: 02/06/21 02:30 Albuterol (Albut/Ipratrop 3mg/0.5mg Neb 3 Ml Vial) 3 ml NEB Q4R PRN PRN Reason: Wheezing Stop: 02/06/21 10:59 Ascorbic Acid (Ascorbic Acid 500 Mg Tab) 500 mg PO DAILY AMELIE Stop: 02/06/21 08:59 Last Admin: 01/09/21 08:05 Dose: 500 mg Documented by: Atorvastatin Calcium (Atorvastatin 20 Mg Tab) 20 mg PO HS AMELIE Stop: 02/06/21 20:59 Last Admin: 01/08/21 20:00 Dose: 20 mg Documented by: Bisacodyl (Bisacodyl 10 Mg Supp) 10 mg MI DAILY PRN PRN Reason: Constipation Stop: 02/06/21 02:30 Escitalopram Oxalate (Escitalopram Oxalate 10 Mg Tab) 10 mg PO DAILY AMELIE Stop: 02/06/21 08:59 Last Admin: 01/09/21 08:05 Dose: 10 mg Documented by: Fluticasone Furoate (Fluticasone Furoate 100mcg 14 Puffs/Inhaler) 1 puffs INH DAILY AMELIE Stop: 02/06/21 10:59 Last Admin: 01/09/21 08:06 Dose: 1 puffs Documented by: Folic Acid (Folic Acid 1 Mg Tab) 1 mg PO DAILY AMELIE Stop: 02/06/21 08:59 Last Admin: 01/09/21 08:05 Dose: 1 mg Documented by: Furosemide (Furosemide 20 Mg Tab) 20 mg PO DAILY AMELIE Stop: 02/07/21 08:59 Last Admin: 01/09/21 08:05 Dose: 20 mg Documented by: Magnesium Hydroxide (Magnesium Hydroxide Susp 30 Ml Udc) 30 ml PO Q6H PRN PRN Reason: Constipation Stop: 02/06/21 02:30 Last Admin: 01/07/21 15:32 Dose: 30 ml Documented by: Melatonin (Melatonin 3 Mg Tab) 3 mg PO HS AMELIE Stop: 02/06/21 20:59 Last Admin: 01/08/21 20:00 Dose: 3 mg Documented by: Metoprolol Tartrate (Metoprolol Tartrate 1 Mg/Ml Vial) 5 mg IV Q5M PRN PRN Reason: HR>120 Stop: 02/06/21 00:17 Last Admin: 01/08/21 00:45 Dose: 5 mg Documented by: Metoprolol Tartrate (Metoprolol Tartrate 100 Mg Tab) 100 mg PO BID [facility] Stop: 02/08/21 20:59 Ondansetron HCl (Ondansetron Inj 2 Mg/Ml 2 Ml Vial) 4 mg IV Q6H PRN PRN Reason: Nausea Stop: 02/06/21 02:30 Polyethylene Glycol (Polyethylene (Miralax) 17 Gm Pack) 17 gm PO DAILY PRN PRN Reason: Constipation Stop: 02/06/21 02:30 Polyethylene Glycol (Polyethylene (Miralax) 17 Gm Pack) 17 gm PO DAILY [facility] Stop: 02/06/21 16:59 Last Admin: 01/09/21 08:06 Dose: Not Given Documented by: Umeclidinium/Vilanterol (Umeclidinium/Vilanterol 62.5/25mcg 7 Puffs/Inhaler) 1 puffs INH DAILY [facility] Stop: 02/06/21 10:59 Last Admin: 01/09/21 08:05 Dose: 1 puffs Documented by: Warfarin Sodium (Warfarin Sod 2.5 Mg Tab) 2.5 mg PO [email or web address] [facility] Stop: 02/07/21 15:59 Last Admin: 01/08/21 15:54 Dose: 2.5 mg Documented by: Warfarin Sodium (Warfarin Sod 5 Mg Tab) 5 mg PO [email or web address] [facility] Stop: 02/06/21 15:59 Last Admin: 01/07/21 15:27 Dose: 5 mg Documented by: Resident Activity Tracking Resident Involvement: Resident Care Provided Care Provided: Adult Hospital Medicine
[2021-01-09] MEDS: WARFARIN SOD 2.5 MG TAB PO SCH (15:24)
--- NOTE | 2021-01-09 18:31 | Billing Data ---
Date of Service January 09, 2021 Coding Level of Care Code 44841 Subseq Hosp Care Lvl 1
[2021-01-09] MEDS: MELATONIN 3 MG TAB PO SCH (21:07)
[2021-01-09] MEDS: ATORVASTATIN 20 MG TAB PO SCH (21:07)
[2021-01-09] MEDS: METOPROLOL TARTRATE 100 MG TAB PO SCH (21:09)
[2021-01-10] MEDS: FOLIC ACID 1 MG TAB PO SCH (08:49)
[2021-01-10] MEDS: ESCITALOPRAM OXALATE 10 MG TAB PO SCH (08:49)
[2021-01-10] MEDS: ASCORBIC ACID 500 MG TAB PO SCH (08:51)
[2021-01-10] MEDS: FUROSEMIDE 20 MG TAB PO SCH (08:51)
[2021-01-10] MEDS: FLUTICASONE FUROATE 100MCG 14 PUFFS/INHALER INH SCH (08:52)
[2021-01-10] MEDS: POLYETHYLENE (MIRALAX) 17 GM PACK PO SCH (08:52)
[2021-01-10] MEDS: UMECLIDINIUM/VILANTEROL 62.5/25MCG 7 PUFFS/INHALER INH SCH (08:52)
[2021-01-10] MEDS: METOPROLOL TARTRATE 100 MG TAB PO SCH (08:55)
--- NOTE | 2021-01-10 16:27 | Billing Data ---
Date of Service January 10, 2021 Coding Level of Care Code D/C Day Management <30 mins
== END 2021-01-10 12:19 | DRG 309 ==
LOC: ED 21:27 → SUATTDRO 01-07 01:02 → 2N 01-07 01:02